=== PATIENT | female | born 1995 | race African-American/Black ===

== ENCOUNTER 2017-01-17 20:30 | Emergency (ER) | payer SELFPAY ==
[~2017-01-17] VITALS: Ht 162.6 cm; Wt 134.3 kg
[~2017-01-17 20:30] MED LIST: ACET-789 PO; AMOX500C2 PO; CEPH500C PO; HYDR-757 PO; IBP800T PO; METH4TAB PO; ONDN4T PO; SILV25CR TP; SULF1TAB35 PO; ZLP5T PO
[2017-01-17] MEDS ORDERED: AMOXICILLIN 500 MG (POLYMOX) CAP PO STA (20:58)
[2017-01-17] MEDS ORDERED: TETANUS,DIPTH,PERTUSS P/F (BOOSTRIX) 0.5 ML VIAL IM ONE (21:00)
[2017-01-17] MEDS ORDERED: DEXAMETHASONE PF 10 MG/ML (DECADRON) VIAL IM ONE (21:00)
[2017-01-17] MEDS ORDERED: AMOX500C2 PO (21:03)
--- NOTE | 2017-01-17 21:04 | ED EENT ---
History of Present Illness General Chief Complaint: Oral/Throat Problems Stated Complaint: SORE THROAT Nursing Triage Note: Pt. advises that she has had a sore throat x 3 days and is now starting to loose her voice. She advised she also has a cut to her lower right leg secondary to a screen door around 1500. She is unsure of the last time she had a tetanus shot Source: patient Exam Limitations: no limitations History of Present Illness Time seen by provider: 20:59 Initial Comments To ER with tenderness around the left lower molar for the past 2-3 days. This has since radiated down into some of the lymph nodes in her neck which are nontender. No fevers. She reports a nonproductive cough however with associated general body aches, sore throat and rhinorrhea. She also cut the back of her foot today on a screen door at home and is uncertain of her tetanus vaccination status. Timing/Duration: gradual Severity: moderate Location: throat Prearrival Treatment: no prearrival treatment Associated Symptoms: cough, No fever, sore throat, voice change (hoarseness but able to swallow without difficulty. No sensation of swelling in her neck.) Allergies and Home Medications Allergies Coded Allergies: acetaminophen (Verified Allergy, Mild, HIVES, 10/11/15) tramadol (Unverified Allergy, Unknown, 01/05/15) Home Medications No Active Prescriptions or Reported Meds Review of Systems Constitutional: see HPI, No chills Eyes: No Symptoms Reported Ears: No Symptoms Reported Nose: no symptoms reported Mouth: see HPI, pain Throat: see HPI, pain, denies neck stiffness, hoarse, denies aphonia, denies muffled, denies painful swallowing, denies difficulty with fluids, denies previous injury Respiratory: no symptoms reported Cardiovascular: no symptoms reported Musculoskeletal: no symptoms reported Skin: no symptoms reported Neurological: No Symptoms Reported Hematologic/Lymphatic: No Symptoms Reported Immunological/Allergic: no symptoms reported Past Sjfvpaa-Seomvy-Pqaskz Hx Patient Social History Alcohol Use: Denies Use Recreational Drug Use: No Smoking Status: Current Everyday Smoker Type Used: Cigarettes Recent Foreign Travel: No Contact w/Someone Who Travel: No Recent Infectious Disease Expo: No Recent Hopitalizations: No Immunizations Up To Date Tetanus Booster (TDap): Unknown Seasonal Allergies Seasonal Allergies: No Surgeries HX Surgeries: No Respiratory Hx Respiratory Disorders: No Cardiovascular Hx Cardiac Disorders: Yes (HIGH BP EVER SINCE I WAS YOUNG) Cardiac Disorders: Hypertension Neurological Hx Neurological Disorders: Yes (HAND TREMORS ALOT.) Reproductive System Hx Reproductive Disorders: No Sexually Transmitted Disease: Yes (TRICHAMONIS) Female Reproductive Disorders: Denies Genitourinary Hx Genitourinary Disorders: No Gastrointestinal Hx Gastrointestinal Disorders: Yes Gastrointestinal Disorders: Gastroesophageal Reflux Musculoskeletal Hx Musculoskeletal Disorders: No Endocrine Hx Endocrine Disorders: No HEENT HX ENT Disorders: No Cancer Hx Cancer: No Psychosocial Hx Psychiatric Problems: Yes Behavioral Health Disorders: Anxiety Integumentary HX Skin/Integumentary Disorder: No Blood Transfusions Hx Blood Disorders: No Family Medical History Family Medial History: Diabetes mellitus 19 MOTHER Hypertension 19 FATHER 19 MOTHER Thyroid disease 19 MOTHER Physical Exam Vital Signs Vital Sign - Last 12Hours 01/17/17 20:46 Temp 97.9 Pulse 81 Resp 14 B/P (MAP) 142/85 Pulse Ox 99 O2 Delivery Room Air General Appearance: WD/WN, no apparent distress Eyes: bilateral eye EOMI, bilateral eye PERRL, bilateral eye normal inspection Ears: bilateral ear TM normal, bilateral ear auricle normal, bilateral ear canal normal Nose: normal inspection, No discharge Neck: non-tender, full range of motion, No lymphadenopathy (R), lymphadenopathy (L) Cardiovascular: no murmur Respiratory: no respiratory distress, no accessory muscle use Gastrointestinal: normal bowel sounds, non tender, soft Neurologic/Psychiatric: alert, normal mood/affect, oriented x 3 Skin: normal color, warm/dry There is a small superficial laceration to the back of the right ankle without active bleeding that she has card with a Band-Aid and this is all that it needs. Progress/Results/Core Measures Results/Orders Vital Signs/I&O Vital Sign - Last 12Hours 01/17/17 20:46 Temp 97.9 Pulse 81 Resp 14 B/P (MAP) 142/85 Pulse Ox 99 O2 Delivery Room Air Blood Pressure Mean: 104 Departure Communication Progress Notes There is no palpable induration or swelling of any part of the jaw or neck. There is no peritonsillar abscess or uvular deviation. No evidence of a deep space neck infection Impression Impression: Primary Impression: Pain, dental Additional Impression: Viral syndrome Disposition: 01 HOME, SELF-CARE Departure-Patient Inst. Decision time for Depature: 21:03 Referrals: MINOR ANNA (PCP/Family) Primary Care Physician Patient Instructions: NO INSTRUCTIONS GIVEN Add. Discharge Instructions: 1. Antibiotics as directed 2. Return to ER for any concerns or worsening symptoms 3. Follow-up with her doctor next week All discharge instructions reviewed with patient and/or family. Voiced understanding. Scripts Amoxicillin (Amoxicillin) 500 Mg Capsule 500 MG PO TID, #21 CAP Prov: GEORGE ANDRADE APRN 01/17/17 Work/School Note: Work Release Form Date Seen in the Emergency Department: January 17, 2017 GEORGE ANDRADE APRN January 17, 2017 21:04
[2017-01-17 21:20] VITALS: BP 145/70
== END 2017-01-17 21:22 | disposition home or self-care (01) ==
LOC: EDUNIT# 20:30 → ER 20:33
DX: B34.9 Viral infection, unspecified (principal); K08.9 Disorder of teeth and supporting structures, unspecified; S81.811A Laceration without foreign body, right lower leg, initial encounter; Z23 Encounter for immunization; F17.210 Nicotine dependence, cigarettes, uncomplicated; W22.8XXA Striking against or struck by other objects, initial encounter; Y92.009 Unspecified place in unspecified non-institutional (private) residence as the place of occurrence of the external cause; Y99.8 Other external cause status
CPT/HCPCS: 90715; 99282

== ENCOUNTER 2017-04-07 20:30 | Emergency (ER) | payer SELFPAY ==
[~2017-04-07] VITALS: Ht 160 cm; Wt 90.7 kg
[2017-04-07] MEDS ORDERED: IBUPROFEN 800 MG (MOTRIN) TAB PO STA (21:11)
[2017-04-07] MEDS ORDERED: RX-CEPHALEXIN (KEFLEX) 250 MG CAP PPK#4 PO STA (21:11)
--- NOTE | 2017-04-07 21:21 | ED EENT ---
History of Present Illness General Chief Complaint: Dental Problems/Pain Stated Complaint: L SIDE MOUTH PAIN Nursing Triage Note: COMPLAINT OF DENTAL PAIN STARTED 3 DAYS AGO. PT VERBALIZED WORSENED TODAY, SWELLING OF GUMS LEFT SIDE WITH PAIN. Source: patient Exam Limitations: no limitations History of Present Illness Time seen by provider: 21:07 Initial Comments 22-year-old female patient presents to the emergency department complaining to 3 day onset of dental pain. States pain is worse today. States she was bringing her mother to the emergency department to be evaluated, so she decided "why not seen as well." Timing/Duration: gradual Location: dental Prearrival Treatment: no prearrival treatment Modifying Factors: Worse With Other (chewing) Allergies and Home Medications Allergies Coded Allergies: acetaminophen (Verified Allergy, Mild, HIVES, 10/11/15) tramadol (Unverified Allergy, Unknown, 01/05/15) Home Medications Amoxicillin 500 Mg Capsule, 500 MG PO TID, #21 Prescribed by: GEORGE ANDRADE on 01/17/172102 Review of Systems Constitutional: No chills, No fever, No malaise Eyes: No Symptoms Reported Ears: No Symptoms Reported Nose: no symptoms reported Mouth: see HPI, pain, swelling (swelling of the gums) Throat: denies pain, denies swelling, denies neck stiffness, denies aphonia, denies muffled, denies painful swallowing, denies difficulty with fluids Respiratory: no symptoms reported Cardiovascular: no symptoms reported Gastrointestinal: no symptoms reported Skin: no symptoms reported Neurological: No Symptoms Reported All Other Systems Reviewed Negative Unless Noted: Yes (Negative excepted noted.) Past Wrbocvl-Wqgqah-Itgvry Hx Patient Social History Type Used: Cigarettes Recent Foreign Travel: No Contact w/Someone Who Travel: No Recent Infectious Disease Expo: No Recent Hopitalizations: No Immunizations Up To Date Tetanus Booster (TDap): Unknown Seasonal Allergies Seasonal Allergies: No Surgeries HX Surgeries: No Respiratory Hx Respiratory Disorders: No Cardiovascular Hx Cardiac Disorders: Yes (HIGH BP EVER SINCE I WAS YOUNG) Cardiac Disorders: Hypertension Neurological Hx Neurological Disorders: Yes (HAND TREMORS ALOT.) Reproductive System Hx Reproductive Disorders: No Sexually Transmitted Disease: Yes (TRICHAMONIS) Female Reproductive Disorders: Denies Genitourinary Hx Genitourinary Disorders: No Gastrointestinal Hx Gastrointestinal Disorders: Yes Gastrointestinal Disorders: Gastroesophageal Reflux Musculoskeletal Hx Musculoskeletal Disorders: No Endocrine Hx Endocrine Disorders: No HEENT HX ENT Disorders: No Cancer Hx Cancer: No Psychosocial Hx Psychiatric Problems: Yes Behavioral Health Disorders: Anxiety Integumentary HX Skin/Integumentary Disorder: No Blood Transfusions Hx Blood Disorders: No Reviewed Nursing Assessment Reviewed/Agree w Nursing PMH: Yes Family Medical History Significant Family History: No Pertinent Family Hx Family Medial History: Diabetes mellitus 19 MOTHER Hypertension 19 FATHER 19 MOTHER Thyroid disease 19 MOTHER Physical Exam Vital Signs Vital Sign - Last 12Hours 04/07/17 20:53 Temp 98.0 Pulse 72 Resp 20 B/P (MAP) 105/70 Pulse Ox 97 O2 Delivery Room Air General Appearance: WD/WN, no apparent distress Eyes: bilateral eye EOMI, bilateral eye PERRL, bilateral eye normal inspection Ears: bilateral ear TM normal, bilateral ear auricle normal, bilateral ear canal normal Nose: normal inspection Mouth/Throat: pharynx normal, dental tenderness (left lower dental tenderness with very minimal swelling of the gums), No excessive drooling, No mandibular swelling, No maxillary swelling, No tongue swollen, No trismus, No uvula swelling, No voice changes Neck: non-tender, full range of motion, supple, normal inspection Cardiovascular: regular rate, rhythm, no murmur Respiratory: lungs clear, normal breath sounds, no respiratory distress Neurologic/Psychiatric: alert, normal mood/affect, oriented x 3 Skin: normal color, warm/dry Progress/Results/Core Measures Results/Orders My Orders Orders - FABRIZIO RENEE Ibuprofen Tablet (Motrin Tablet) (04/07/17 21:11) Rx-Cephalexin Capsule (Rx-Keflex Capsule (04/07/17 21:11) Vital Signs/I&O Vital Sign - Last 12Hours 04/07/17 20:53 Temp 98.0 Pulse 72 Resp 20 B/P (MAP) 105/70 Pulse Ox 97 O2 Delivery Room Air Blood Pressure Mean: 82 Departure Impression Impression: Primary Impression: Infected dental caries Disposition: 01 HOME, SELF-CARE Condition: Improved Departure-Patient Inst. Decision time for Depature: 21:21 Referrals: MINOR ANNA (PCP/Family) Primary Care Physician Patient Instructions: Dental Pain (DC) Add. Discharge Instructions: All discharge instructions reviewed with patient and/or family. Voiced understanding. Medications as instructed. Ibuprofen 800 mg by mouth every 8 hours as needed for pain. Follow-up with the dentist of your choice for recheck and dental repair. Return to the emergency department for worsened symptoms or any other concerns. Scripts Hydrocodone/Acetaminophen (Vicodin Es 7.5-300 mg Tablet) 1 Each Tablet 1 EACH PO Q6H Y for pain, #10 TAB 0 Refills Prov: FABRIZIO RENEE 04/07/17 Cephalexin (Cephalexin) 500 Mg Capsule 500 MG PO TID, #21 CAP 0 Refills Prov: FABRIZIO RENEE 04/07/17 FABRIZIO RENEE Apr 07, 2017 21:21
[2017-04-07] MEDS ORDERED: HYDR-3456 PO (21:24)
[2017-04-07] MEDS ORDERED: CEPH500C PO (21:24)
[2017-04-07 21:35] VITALS: BP 115/70
== END 2017-04-07 21:35 | disposition home or self-care (01) ==
LOC: EDUNIT# 20:30 → ER 20:33
DX: K02.9 Dental caries, unspecified (principal); I10 Essential (primary) hypertension; K21.9 Gastro-esophageal reflux disease without esophagitis; F41.9 Anxiety disorder, unspecified
CPT/HCPCS: 99283

== ENCOUNTER 2017-08-30 19:05 | Emergency (ER) | payer SELFPAY ==
[~2017-08-30] VITALS: Ht 162.6 cm; Wt 131.5 kg
[~2017-08-30 19:05] MED LIST changes: +HYDR-3456 PO
[2017-08-30] MEDS ORDERED: AMOX500C2 PO (19:51)
--- NOTE | 2017-08-30 19:52 | ED EENT ---
History of Present Illness General Chief Complaint: Dental Problems/Pain Stated Complaint: DENTAL PAIN Nursing Triage Note: PT TO ED FOR C/O LT SIDE DENTAL PAIN ONSET 2-3 DAYS, WORSE TODAY. POOR DENTAL HYGIENE NOTED. NO OTHER C/O VOICED Source: patient Exam Limitations: no limitations History of Present Illness Time seen by provider: 19:46 Initial Comments To ER with c/o left tooth pain x3 days. Timing/Duration: abrupt Severity: moderate Associated Symptoms: cough Allergies and Home Medications Allergies Coded Allergies: acetaminophen (Verified Allergy, Mild, HIVES, 10/11/15) tramadol (Unverified Allergy, Unknown, 01/05/15) Home Medications Amoxicillin 500 Mg Capsule, 500 MG PO TID, #21 Prescribed by: GEORGE ANDRADE on 01/17/172102 Cephalexin 500 Mg Capsule, 500 MG PO TID, #21 Ref 0 Prescribed by: FABRIZIO RENEE on 04/07/172123 Hydrocodone/Acetaminophen 1 Each Tablet, 1 EACH PO Q6H PRN for pain, #10 Ref 0 Prescribed by: FABRIZIO RENEE on 04/07/172123 Review of Systems Constitutional: see HPI Eyes: No Symptoms Reported Ears: No Symptoms Reported Nose: no symptoms reported Mouth: see HPI Throat: no symptoms reported Respiratory: no symptoms reported Cardiovascular: no symptoms reported Musculoskeletal: no symptoms reported Past Lwckvve-Diyalk-Qggyaq Hx Patient Social History Alcohol Use: Occasionally Uses Recreational Drug Use: No Smoking Status: Current Everyday Smoker Type Used: Cigarettes Recent Foreign Travel: No Contact w/Someone Who Travel: No Recent Infectious Disease Expo: No Recent Hopitalizations: No Physical Abuse: No Sexual Abuse: No Mistreated: No Fear: No Immunizations Up To Date Tetanus Booster (TDap): Unknown Seasonal Allergies Seasonal Allergies: No Surgeries History of Surgeries: No Respiratory History of Respiratory Disorde: No Cardiovascular History of Cardiac Disorders: Yes (HIGH BP EVER SINCE I WAS YOUNG) Cardiac Disorders: Hypertension Neurological History of Neurological Disord: Yes (HAND TREMORS ALOT.) Reproductive System Hx Reproductive Disorders: No Sexually Transmitted Disease: Yes (TRICHAMONIS) Female Reproductive Disorders: Denies Gastrointestinal History of Gastrointestinal Di: Yes Gastrointestinal Disorders: Gastroesophageal Reflux Musculoskeletal History of Musculoskeletal Dis: No Endocrine History of Endocrine Disorders: No Cancer History of Cancer: No Psychosocial History of Psychiatric Problem: Yes Behavioral Health Disorders: Anxiety Suicide Risk Score: 0 Integumentary History of Skin or Integumenta: No Blood Transfusions History of Blood Disorders: No Family Medical History Significant Family History: No Pertinent Family Hx Family Medial History: Diabetes mellitus 19 MOTHER Hypertension 19 FATHER 19 MOTHER Thyroid disease 19 MOTHER Physical Exam Vital Signs Vital Sign - Last 12Hours 08/30/17 19:22 Temp 97.1 Pulse 68 Resp 20 B/P (MAP) 137/79 (98) Pulse Ox 100 O2 Delivery Room Air General Appearance: WD/WN, no apparent distress Eyes: bilateral eye normal inspection, bilateral eye PERRL Ears: bilateral ear auricle normal, bilateral ear canal normal Mouth/Throat: normal mouth inspection, pharynx normal, other (is inflamed flap of gingiva over the left lower molar. Tender to palpation.) Neck: non-tender, full range of motion, No lymphadenopathy (R), lymphadenopathy (L) Cardiovascular: regular rate, rhythm, no murmur Respiratory: normal breath sounds, no respiratory distress, no accessory muscle use Gastrointestinal: normal bowel sounds, non tender Neurologic/Psychiatric: alert, normal mood/affect, oriented x 3 Skin: normal color, warm/dry Progress/Results/Core Measures Results/Orders Vital Signs/I&O Vital Sign - Last 12Hours 08/30/17 19:22 Temp 97.1 Pulse 68 Resp 20 B/P (MAP) 137/79 (98) Pulse Ox 100 O2 Delivery Room Air Blood Pressure Mean: 98 Departure Impression Impression: Primary Impression: Pericoronitis Disposition: 01 HOME, SELF-CARE Condition: Stable Departure-Patient Inst. Decision time for Depature: 19:49 Referrals: NO,LOCAL PHYSICIAN (PCP/Family) Primary Care Physician Patient Instructions: NO INSTRUCTIONS GIVEN Add. Discharge Instructions: 1. Use the cotton ball soaked in lidocaine applied to this area every few hours as needed 2. Antibiotics as directed 3. Return to ER for any worsening. 4. Use both tylenol and motrin as well for additional pain control All discharge instructions reviewed with patient and/or family. Voiced understanding. Scripts Amoxicillin (Amoxicillin) 500 Mg Capsule 500 MG PO TID, #15 CAP Prov: GEORGE ANDRADE APRN 08/30/17 GEORGE ANDRADE COMPENSATION VICE PRESIDENT Aug 30, 2017 19:52
[2017-08-30] MEDS ORDERED: AMOXICILLIN 500 MG (POLYMOX) CAP PO ONE (19:54)
[2017-08-30] MEDS ORDERED: AMOXICILLIN 250 MG (POLYMOX) CAP PO SCH (20:00)
[2017-08-30] MEDS ORDERED: LIDOCAINE 2% VISCOUS 15 ML UDC PO ONE (20:00)
[2017-08-30 20:03] VITALS: BP 0/0
== END 2017-08-30 20:03 | disposition home or self-care (01) ==
LOC: EDUNIT# 19:05 → ER 19:07
DX: K05.30 Chronic periodontitis, unspecified (principal); I10 Essential (primary) hypertension; K21.9 Gastro-esophageal reflux disease without esophagitis; F41.9 Anxiety disorder, unspecified; F17.210 Nicotine dependence, cigarettes, uncomplicated
CPT/HCPCS: 99283

== ENCOUNTER 2018-03-07 19:23 | Emergency (ER) | payer SELFPAY ==
[~2018-03-07] VITALS: Ht 160 cm; Wt 113.4 kg
[2018-03-07] MEDS ORDERED: HYDR10SY16 PO (19:39)
[2018-03-07] MEDS ORDERED: BUPR150T7 (19:39)
[2018-03-07] MEDS ORDERED: LIDOCAINE 2% VISCOUS 15 ML UDC PO ONE (20:00)
--- NOTE | 2018-03-07 20:04 | ED EENT ---
History of Present Illness General Chief Complaint: Dental Problems/Pain Stated Complaint: GUMS SWELLING/BLEEDING Nursing Triage Note: SWOLLEN/PAINFUL GUMS Source: patient Exam Limitations: no limitations History of Present Illness Date Seen by Provider: Mar 07, 2018 Time Seen by Provider: 20:00 Initial Comments Patient is a 22-year-old female presents to the emergency room with complaints of a sore in her mouth. The patient has a sore that she reports has been bleeding in the left upper inner lip. She reports that she has been seen by the dentist recently and thought it was just irritation from a dental cleaning but reports that the pain has become worse and she did notice bleeding this morning. Timing/Duration: this morning Prearrival Treatment: no prearrival treatment Associated Symptoms: denies symptoms; No fever, No tooth pain Allergies and Home Medications Allergies Coded Allergies: acetaminophen (Verified Allergy, Mild, HIVES, 10/11/15) tramadol (Unverified Allergy, Unknown, 01/05/15) Home Medications Amoxicillin 500 Mg Capsule, 500 MG PO TID Prescribed by: GEORGE ANDRADE on 03/08/182024 Chlorhexidine Gluconate 473 Ml Mouthwash, 45 ML MM BID Prescribed by: GEORGE ANDRADE on 03/08/182024 Patient Home Medication List Home Medication List Reviewed: Yes Review of Systems Constitutional: see HPI; No chills, No fever, No malaise Eyes: See HPI; Denies Blindness, Denies Blurred Vision, Denies Drainage Ears: See HPI; Denies Dizziness, Denies Pain Nose: see HPI; denies clots, denies congestion Mouth: see HPI; denies loose teeth; pain; denies swelling; bloody discharge; denies clear discharge, denies purulent discharge Throat: see HPI; denies pain, denies swelling, denies discharge Respiratory: see HPI; No cough, No dyspnea on exertion Cardiovascular: see HPI; No chest pain, No edema Gastrointestinal: see HPI Musculoskeletal: see HPI; No back pain, No gout Skin: see HPI; No change in color, No change in hair/nails Neurological: See HPI; Denies Anxiety, Denies Depressed Hematologic/Lymphatic: See HPI; Denies Anemia, Denies Blood Clots Immunological/Allergic: see HPI; denies food allergy All Other Systems Reviewed Negative Unless Noted: Yes Past Ikdnxxa-Smgzxw-Hwqwtl Hx Past Med/Social Hx: Reviewed Nursing Past Med/Soc Hx Patient Social History Alcohol Use: Denies Use Recreational Drug Use: No Type Used: Cigarettes 2nd Hand Smoke Exposure: Yes Recent Foreign Travel: No Contact w/Someone Who Travel: No Recent Infectious Disease Expo: No Recent Hopitalizations: No Immunizations Up To Date Tetanus Booster (TDap): Unknown Seasonal Allergies Seasonal Allergies: No Past Medical History Surgeries: No Respiratory: No Cardiac: Yes Hypertension Neurological: No : No Reproductive Disorders: No Female Reproductive Disorders: Denies Sexually Transmitted Disease: Yes (TRICHAMONIS) Genitourinary: Yes UTI-Chronic Gastrointestinal: Yes Gastroesophageal Reflux Musculoskeletal: No Endocrine: No HEENT: No Cancer: No Psychosocial: Yes Anxiety, Violent Behavior, Depression Integumentary: No Blood Disorders: No Family Medical History Reviewed Nursing Family Hx Diabetes mellitus 19 MOTHER Hypertension 19 FATHER 19 MOTHER Thyroid disease 19 MOTHER No Pertinent Family Hx Physical Exam Vital Signs General Appearance: WD/WN, no apparent distress Eyes: bilateral eye normal inspection, bilateral eye PERRL, bilateral eye EOMI Ears: bilateral ear auricle normal, bilateral ear canal normal, bilateral ear TM normal Nose: normal inspection; No active bleeding Mouth/Throat: normal mouth inspection, pharynx normal; No dental tenderness, No excessive drooling, No foreign body, No mandibular swelling; other (there is a canker lesion in the left upper lip. Is white in color. no bleeding noted at this time) Neck: non-tender, full range of motion, supple, normal inspection Cardiovascular: normal peripheral pulses, regular rate, rhythm, no edema, no gallop, no JVD, no murmur Respiratory: chest non-tender, lungs clear, normal breath sounds, no respiratory distress, no accessory muscle use Gastrointestinal: normal bowel sounds, non tender, soft, no organomegaly, no pulsatile mass Neurologic/Psychiatric: alert, normal mood/affect, oriented x 3 Skin: normal color, warm/dry Progress/Results/Core Measures Results/Orders My Orders Medications Given in ED Vital Signs/I&O Blood Pressure Mean: 109 Progress Progress Note : Time: 20:03 Progress Note Patient was sent home with prescription for dexamethasone elixir to be used as needed. Departure Impression Primary Impression: Canker sore Disposition: 01 HOME, SELF-CARE Condition: Stable/Unchanged Departure-Patient Inst. Decision time for Depature: 20:01 Referrals: NO,LOCAL PHYSICIAN (PCP) Primary Care Physician Patient Instructions: LOCAL PHYSICIAN LIST, Gingivitis (DC) Add. Discharge Instructions: Take medications as directed. Se may use the lidocaine soaked gauze on the area for discomfort. Return back to the emergency room for any worsening symptoms. Follow-up with your doctor within 1 week for recheck, I provided a list of local physicians for your choosing. All discharge instructions reviewed with patient and/or family. Voiced understanding. WILMER CONTRERAS Mar 07, 2018 20:04
[2018-03-07 20:09] VITALS: BP 147/90
[2018-03-08] MEDS ORDERED: AMOX500C2 PO (20:25)
[2018-03-08] MEDS ORDERED: CHLO473M4 MM (20:25)
== END 2018-03-07 20:09 | disposition home or self-care (01) ==
LOC: EDUNIT# 19:23 → ER 19:25
DX: K12.0 Recurrent oral aphthae (principal); I10 Essential (primary) hypertension; K21.9 Gastro-esophageal reflux disease without esophagitis; F41.9 Anxiety disorder, unspecified; F32.9 Major depressive disorder, single episode, unspecified; Z77.22 Contact with and (suspected) exposure to environmental tobacco smoke (acute) (chronic); Z88.6 Allergy status to analgesic agent
CPT/HCPCS: 99283

== ENCOUNTER 2018-03-08 20:08 | Emergency (ER) | payer SELFPAY ==
[~2018-03-08] VITALS: Ht 160 cm; Wt 113.4 kg
[~2018-03-08 20:08] MED LIST changes: +BUPR150T7; +HYDR10SY16 PO
[2018-03-08] MEDS ORDERED: AMOXICILLIN 500 MG (POLYMOX) CAP PO STA (20:17)
--- NOTE | 2018-03-08 20:24 | ED EENT ---
History of Present Illness General Chief Complaint: Oral/Throat Problems Stated Complaint: CANKER SORE/EXCESSIVE BLEEDING Source: patient Exam Limitations: no limitations History of Present Illness Date Seen by Provider: Mar 08, 2018 Time Seen by Provider: 20:18 Initial Comments to ER with reports of bleeding from a canker sore. She was seen here yesterday for the same and given topical lidocaine for pain control and a prescription for dexamethasone mouthwash. She states that she was at work this evening at [employer] when she developed bleeding and pain to the left upper gums Timing/Duration: last week (discomfort to the left upper gums has been present for one week) Severity: moderate Location: mouth Associated Symptoms: denies symptoms Allergies and Home Medications Allergies Coded Allergies: acetaminophen (Verified Allergy, Mild, HIVES, 10/11/15) tramadol (Unverified Allergy, Unknown, 01/05/15) Patient Home Medication List Home Medication List Reviewed: Yes Review of Systems Constitutional: see HPI Eyes: No Symptoms Reported Ears: No Symptoms Reported Nose: see HPI, epistaxis, bloody discharge Mouth: no symptoms reported Throat: no symptoms reported Respiratory: no symptoms reported Cardiovascular: no symptoms reported Musculoskeletal: no symptoms reported Skin: no symptoms reported Neurological: No Symptoms Reported Hematologic/Lymphatic: No Symptoms Reported Immunological/Allergic: no symptoms reported Past Lniwtlo-Prbfvq-Hvyjky Hx Patient Social History Type Used: Cigarettes 2nd Hand Smoke Exposure: Yes Recent Hopitalizations: No Immunizations Up To Date Tetanus Booster (TDap): Unknown Seasonal Allergies Seasonal Allergies: No Past Medical History Surgeries: No Respiratory: No Cardiac: Yes Hypertension Neurological: No Reproductive Disorders: No Female Reproductive Disorders: Denies Sexually Transmitted Disease: Yes (TRICHAMONIS) Genitourinary: Yes UTI-Chronic Gastrointestinal: Yes Gastroesophageal Reflux Musculoskeletal: No Endocrine: No HEENT: No Cancer: No Psychosocial: Yes Anxiety, Violent Behavior, Depression Integumentary: No Blood Disorders: No Family Medical History Diabetes mellitus 19 MOTHER Hypertension 19 FATHER 19 MOTHER Thyroid disease 19 MOTHER No Pertinent Family Hx Physical Exam General Appearance: WD/WN, no apparent distress Eyes: bilateral eye normal inspection, bilateral eye PERRL, bilateral eye EOMI Nose: normal inspection; No active bleeding Mouth/Throat: other (there is some inflammation of the left maxillary gingiva with friability as well. There is no active source of bleeding. There is some minimal blood around a few teeth at the base. There is no aphthous ulcer seen. No buccal discoloration ulceration or other lesions seen.) Progress/Results/Core Measures Results/Orders My Orders Orders - GEORGE ANDRADE APRN Amoxicillin Capsule (Polymox Capsule) (03/08/18 20:17) Departure Impression Primary Impression: Gingivitis Disposition: HOME, SELF-CARE Condition: Stable Departure-Patient Inst. Decision time for Depature: 20:24 Referrals: NO,LOCAL PHYSICIAN (PCP/Family) Primary Care Physician Patient Instructions: Gingivitis (DC) Add. Discharge Instructions: 1. You may stop the dexamethasone mouthwash. Replace this with the chlorhexidine mouthwash and oral antibiotics. Follow-up with your dentist within 1 week.All discharge instructions reviewed with patient and/or family. Voiced understanding. Scripts Amoxicillin (Amoxicillin) 500 Mg Capsule 500 MG PO TID, #21 CAP Prov: GEORGE ANDRADE APRN 03/08/18 Chlorhexidine Gluconate (Peridex) 473 Ml Mouthwash 45 ML MM BID, #473 ML Prov: GEORGE ANDRADE APRN 03/08/18 GEORGE ANDRADE APRN Mar 08, 2018 20:24
[2018-03-08] MEDS ORDERED: AMOX500C2 PO (20:25)
[2018-03-08] MEDS ORDERED: CHLO473M4 MM (20:25)
[2018-03-08 20:30] VITALS: BP 164/100
== END 2018-03-08 20:35 | disposition home or self-care (01) ==
LOC: EDUNIT# 20:08 → ER 20:09
DX: K05.10 Chronic gingivitis, plaque induced (principal); K21.9 Gastro-esophageal reflux disease without esophagitis; F41.9 Anxiety disorder, unspecified; F32.9 Major depressive disorder, single episode, unspecified; F60.9 Personality disorder, unspecified; I10 Essential (primary) hypertension; Z77.22 Contact with and (suspected) exposure to environmental tobacco smoke (acute) (chronic); Z88.6 Allergy status to analgesic agent
CPT/HCPCS: 99283

== ENCOUNTER 2018-06-21 09:41 | Emergency (ER) | payer SELFPAY ==
[~2018-06-21] VITALS: Ht 162.6 cm; Wt 113.4 kg
[~2018-06-21 09:41] MED LIST changes: +CHLO473M4 MM; +HYDR-4226 PO
[2018-06-21 10:20] LABS: BASOPHILS % (AUTO) 0 % (0-10); EOSINOPHILS # (AUTO) 0.1 10^3/uL (0.0-0.3); EOSINOPHILS % (AUTO) 1 % (0-10); HEMATOCRIT 37 % (35-52); LYMPHOCYTES # (AUTO) 1.8 X 10^3 (1.0-4.0); LYMPHOCYTES % (AUTO) 27 % (12-44); MEAN CORPUSCULAR HEMOGLOBIN 26 PG (25-34); MEAN CORPUSCULAR HGB CONC 33 G/DL (32-36); MEAN CORPUSCULAR VOLUME 80 FL (80-99); MONOCYTES # (AUTO) 0.6 X 10^3 (0.0-1.0); MONOCYTES % (AUTO) 9 % (0-12); NEUTROPHILS # (AUTO) 4.3 X 10^3 (1.8-7.8); NEUTROPHILS % (AUTO) 63 % (42-75); PLATELET COUNT 304 10^3/uL (130-400); RED BLOOD COUNT 4.57 10^6/uL (4.35-5.85); RED CELL DISTRIBUTION WIDTH 15.2 % (10.0-14.5); WHITE BLOOD COUNT 6.7 10^3/uL (4.3-11.0)
[2018-06-21 10:42] LABS: ALANINE AMINOTRANSFERASE 19 U/L (0-55); ALKALINE PHOSPHATASE 51 U/L (40-136); BILIRUBIN,TOTAL 0.4 MG/DL (0.1-1.0); BUN/CREATININE RATIO 13; CALCIUM 9.1 MG/DL (8.5-10.1); CARBON DIOXIDE 20 MMOL/L (21-32); CHLORIDE 108 MMOL/L (98-107); CREATININE SERUM 0.82 MG/DL (0.60-1.30); GFR ESTIMATED > 60; GLUCOSE 98 MG/DL (70-105); POTASSIUM 3.9 MMOL/L (3.6-5.0); SODIUM 136 MMOL/L (135-145); TOTAL PROTEIN 8.5 GM/DL (6.4-8.2)
[2018-06-21] MEDS ORDERED: ONDANSETRON 8 MG (ZOFRAN) ORAL DISSOLVE TAB PO ONE (10:45)
--- NOTE | 2018-06-21 11:07 | ED Cough/URI ---
General Chief Complaint: Cough/Cold/Flu Symptoms Stated Complaint: COUGH;WEAKNESS Nursing Triage Note: Patient stated cough since yesterday. Has not taken any medication for it. Keeps patient up at night and cough is uncontrollable, threw up 5 times. general weakness History of Present Illness Date Seen by Provider: Jun 21, 2018 Time Seen by Provider: 11:04 Initial Comments The patient is a 23-year-old black female who reports that she developed a cough yesterday. At times it has been rather violent. SHe has on occasion caused her to vomit. She complains bitterly of fever and loss of sleep. Others at home have been ill as well. Timing/Duration: yesterday Severity/Quality: productive cough (harsh cough with vomiting) Allergies and Home Medications Allergies Coded Allergies: acetaminophen (Verified Allergy, Mild, HIVES, 10/11/15) tramadol (Unverified Allergy, Unknown, 01/05/15) Home Medications Amoxicillin 500 Mg Capsule, 500 MG PO TID Prescribed by: GEORGE ANDRADE on 03/08/182024 Chlorhexidine Gluconate 473 Ml Mouthwash, 45 ML MM BID Prescribed by: GEORGE ANDRADE on 03/08/182024 Patient Home Medication List Home Medication List Reviewed: Yes Review of Systems Review of Systems Constitutional: see HPI EENTM: hoarseness, throat pain Respiratory: cough Cardiovascular: no symptoms reported Gastrointestinal: no symptoms reported Genitourinary: no symptoms reported Musculoskeletal: muscle pain Skin: no symptoms reported Psychiatric/Neurological: No Symptoms Reported Hematologic/Lymphatic: No Symptoms Reported Immunological/Allergic: no symptoms reported Past Jbcwdax-Myvoiy-Gwxvzp Hx Patient Social History Alcohol Use: Denies Use Recreational Drug Use: No Smoking Status: Current Everyday Smoker Type Used: Cigarettes 2nd Hand Smoke Exposure: Yes Recent Foreign Travel: No Contact w/Someone Who Travel: No Recent Infectious Disease Expo: No Recent Hopitalizations: No Immunizations Up To Date Tetanus Booster (TDap): Unknown Seasonal Allergies Seasonal Allergies: No Past Medical History Surgeries: No Respiratory: No Cardiac: No Hypertension Neurological: No Reproductive Disorders: No Female Reproductive Disorders: Denies Sexually Transmitted Disease: Yes (TRICHAMONIS) Genitourinary: No UTI-Chronic Gastrointestinal: No Gastroesophageal Reflux Musculoskeletal: No Endocrine: No HEENT: No Cancer: No Psychosocial: No Anxiety, Violent Behavior, Depression Integumentary: No Blood Disorders: No Adverse Reaction/Blood Tranf: No Family Medical History Diabetes mellitus 19 MOTHER Hypertension 19 FATHER 19 MOTHER Thyroid disease 19 MOTHER No Pertinent Family Hx Physical Exam Vital Signs - First Documented 06/21/18 09:52 Temp 99.0 Pulse 83 Resp 22 B/P (MAP) 133/109 (117) Pulse Ox 97 O2 Delivery Room Air Capillary Refill : Less Than 3 Seconds Height: 5'4.00" Weight: 250lbs. 0oz. 113.302013jo; 48.06 BMI Method:Stated General Appearance: mild distress Eyes: Bilateral Eye Normal Inspection HEENT: normal ENT inspection Neck: non-tender, full range of motion, supple, normal inspection, carotid bruit Respiratory: chest non-tender, lungs clear, normal breath sounds, no respiratory distress, no accessory muscle use Cardiovascular: normal peripheral pulses, regular rate, rhythm, no edema, no gallop, no JVD, no murmur Gastrointestinal: normal bowel sounds, non tender, soft, no organomegaly, no pulsatile mass Extremities: normal range of motion, non-tender, normal inspection, no pedal edema, no calf tenderness, normal capillary refill, pelvis stable Neurologic/Psychiatric: cardiac nurse specialist II-XII nml as tested, no motor/sensory deficits, alert, normal mood/affect, oriented x 3 Skin: normal color, warm/dry, cyanosis, cool, diaphoresis, damp Progress/Results/Core Measures Suspected Sepsis Recent Fever Within 48 Hours: No Infection Criteria Present: Suspected New Infection New/Unexplained Altered Menta: No Sepsis Screen: No Definite Risk SIRS Temperature:99.0 Pulse: 83 Respiratory Rate: 22 Laboratory Tests 06/21/18 10:10: White Blood Count 6.7 Blood Pressure 133 /109 Mean: 117 Laboratory Tests 06/21/18 10:10: Creatinine 0.82, Platelet Count 304, Total Bilirubin 0.4 Results/Orders Lab Results Laboratory Tests Test 06/21/18 10:10 Range/Units White Blood Count 6.7 4.3-11.0 10^3/uL Red Blood Count 4.57 4.35-5.85 10^6/uL Hemoglobin 12.0 11.5-16.0 G/DL Hematocrit 37 35-52 % Mean Corpuscular Volume 80 80-99 FL Mean Corpuscular Hemoglobin 26 25-34 PG Mean Corpuscular Hemoglobin Concent 33 32-36 G/DL Red Cell Distribution Width 15.2 H 10.0-14.5 % Platelet Count 304 130-400 10^3/uL Mean Platelet Volume 9.0 7.4-10.4 FL Neutrophils (%) (Auto) 63 42-75 % Lymphocytes (%) (Auto) 27 12-44 % Monocytes (%) (Auto) 9 0-12 % Eosinophils (%) (Auto) 1 0-10 % Basophils (%) (Auto) 0 0-10 % Neutrophils # (Auto) 4.3 1.8-7.8 X 10^3 Lymphocytes # (Auto) 1.8 1.0-4.0 X 10^3 Monocytes # (Auto) 0.6 0.0-1.0 X 10^3 Eosinophils # (Auto) 0.1 0.0-0.3 10^3/uL Basophils # (Auto) 0.0 0.0-0.1 10^3/uL Sodium Level 136 135-145 MMOL/L Potassium Level 3.9 3.6-5.0 MMOL/L Chloride Level 108 H 98-107 MMOL/L Carbon Dioxide Level 20 L 21-32 MMOL/L Anion Gap 8 5-14 MMOL/L Blood Urea Nitrogen 11 7-18 MG/DL Creatinine 0.82 0.60-1.30 MG/DL Estimat Glomerular Filtration Rate > 60 BUN/Creatinine Ratio 13 Glucose Level 98 70-105 MG/DL Calcium Level 9.1 8.5-10.1 MG/DL Corrected Calcium 9.1 8.5-10.1 MG/DL Total Bilirubin 0.4 0.1-1.0 MG/DL Aspartate Amino Transf (AST/SGOT) 22 5-34 U/L Alanine Aminotransferase (ALT/SGPT) 19 0-55 U/L Alkaline Phosphatase 51 40-136 U/L Total Protein 8.5 H 6.4-8.2 GM/DL Albumin 4.0 3.2-4.5 GM/DL Micro Results Microbiology 06/21/18 Influenza Types A,B Antigen (MATA) - Final, Complete My Orders Orders - JUS TAPIA MD Cbc With Automated Diff (06/21/18 09:51) Comprehensive Metabolic Panel (06/21/18 09:51) Influenza A And B Antigens (06/21/18 09:51) Chest 1 View, Ap/Pa Only (06/21/18 11:02) Medications Given in ED Current Medications Medications Dose Ordered Sig/Domenica Route Start Time Stop Time Status Last Admin Dose Admin Ondansetron Base 8 mg ONCE ONCE PO 06/21/18 10:45 06/21/18 10:46 DC 06/21/18 10:41 8 MG Vital Signs/I&O 06/21/18 09:52 Temp 99.0 Pulse 83 Resp 22 B/P (MAP) 133/109 (117) Pulse Ox 97 O2 Delivery Room Air Capillary Refill : Less Than 3 Seconds Blood Pressure Mean: 117 Departure Impression Primary Impression: viral upper respiratory infection Disposition: HOME, SELF-CARE Condition: Stable/Unchanged Departure-Patient Inst. Decision time for Depature: 11:42 Referrals: NO,LOCAL PHYSICIAN (PCP) Primary Care Physician Patient Instructions: Cough, Adult (DC) Add. Discharge Instructions: All discharge instructions reviewed with patient and/or family. Voiced understanding. Lots of liquids. Robitussin cough syrup as needed. Holes throat lozenges, I recommend the yellow and gold package, as needed to control cough Ibuprofen 600 mg every 6 hours as needed for fever aches and pains. This can take 10 days to 2 weeks [address] your way through JUS TAPIA MD Jun 21, 2018 11:07
--- NOTE | 2018-06-21 11:20 | Diagnostic Imaging Report ---
INDICATION: Fever and chills PA chest obtained at 1109 AM and compared to 12/12/2012. Heart and mediastinal silhouette are normal in appearance. The lungs are clear. There is no pneumothorax or pleural fluid. IMPRESSION: Negative chest. Dictated by: Dictated on workstation # [id number]
[2018-06-21 12:01] VITALS: BP 133/109
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
== END 2018-06-21 12:09 | disposition home or self-care (01) ==
LOC: EDUNIT# 09:41 → ER 09:43
DX: J06.9 Acute upper respiratory infection, unspecified (principal); I10 Essential (primary) hypertension; K21.9 Gastro-esophageal reflux disease without esophagitis; F41.9 Anxiety disorder, unspecified; F32.9 Major depressive disorder, single episode, unspecified; F17.210 Nicotine dependence, cigarettes, uncomplicated; Z86.19 Personal history of other infectious and parasitic diseases; Z88.6 Allergy status to analgesic agent; Z87.440 Personal history of urinary (tract) infections; Z88.8 Allergy status to other drugs, medicaments and biological substances
CPT/HCPCS: 36415; 71045; 80053; 85025; 87804

== ENCOUNTER 2018-10-31 18:08 | Emergency (ER) | payer SELFPAY ==
[~2018-10-31] VITALS: Ht 160 cm; Wt 136.1 kg
--- NOTE | 2018-10-31 18:20 | NUR ---
ATTEMPT TO CALL PT BACK ET PT IN THE BATHROOM.
--- OUTSIDE RECORDS SUMMARY | 2018-10-31 18:20 | XMS REPORT | Continuity of Care Document ---
Author Author [facility] Organization [facility] Address Unknown Phone Unavailable Allergies Active Description Code Type Severity Reaction Onset Reported/Identified Relationship to Patient Clinical Status Yes No Known Drug Allergies [id number] Drug Allergy Unknown N/A 06/28/2010 Yes NSAIDS (Non-Steroidal Anti-Inflamma [id number] Drug Allergy Unknown N/A Yes tramadol [id number] Drug Allergy Unknown N/A 01/05/2015 Yes acetaminophen [id number] Drug Allergy Mild HIVES 10/11/2015 Medications There [...] MD Ot R30.0 DYSURIA 05/22/2016 MINOR ANNA ROOFER GYPSUM Ot E27.9 DISORDER OF ADRENAL GLAND, UNSPECIFIED 05/24/2016 MINOR ANNA ROOFER GYPSUM Ot E27.9 DISORDER OF ADRENAL GLAND, UNSPECIFIED 06/06/2016 MINOR ANNA ROOFER GYPSUM Ot E27.9 DISORDER OF ADRENAL GLAND, UNSPECIFIED 06/06/2016 MINOR ANNA ROOFER GYPSUM Ot E27.9 DISORDER OF ADRENAL GLAND, UNSPECIFIED 06/07/2016 MINOR ANNA ROOFER GYPSUM Ot E27.9 DISORDER OF ADRENAL GLAND, UNSPECIFIED 07/28/2016 MINOR ANNA [facility] Ot E27.9 DISORDER OF ADRENAL GLAND, UNSPECIFIED 01/17/2017 MINOR ANNA ROOFER GYPSUM Ot E27.9 DISORDER OF ADRENAL GLAND, UNSPECIFIED 01/17/2017 MINOR ANNA ROOFER GYPSUM Ot E27.9 DISORDER OF ADRENAL GLAND, UNSPECIFIED [...] OBJE 01/17/2017 GEORGE ANDRADE APRN Ot Y92.[address] [facility] [address] IN [facility] NON-INSTITUT (PRIVATE 01/17/2017 GEORGE ANDRADE APRN Ot [...] GASTRO-ESOPHAGEAL REFLUX DISEASE WITHOUT 05/11/2017 MINOR ANNA ROOFER GYPSUM Ot E27.9 DISORDER OF ADRENAL GLAND, UNSPECIFIED 05/11/2017 MINOR ANNA ROOFER GYPSUM Ot E27.9 DISORDER OF ADRENAL GLAND, UNSPECIFIED 08/30/2017 GEORGE ANDRADE APRN Ot F17.210 NICOTINE DEPENDENCE, CIGARETTES, UNCOMPL 08/30/2017 ANDRADE, PETER J ROOFER GYPSUM Ot F41.9 ANXIETY DISORDER, UNSPECIFIED 08/30/2017 GEORGE ANDRADE ROOFER GYPSUM Ot I10 ESSENTIAL (PRIMARY) HYPERTENSION 08/30/2017 GEORGE ANDRADE ROOFER GYPSUM Ot K05.30 CHRONIC PERIODONTITIS, UNSPECIFIED 08/30/2017 GEORGE ANDRADE ROOFER GYPSUM Ot K08.89 OTHER SPECIFIED DISORDERS OF TEETH AND S 08/30/2017 GEORGE ANDRADE ROOFER GYPSUM Ot K21.9 GASTRO-ESOPHAGEAL REFLUX DISEASE WITHOUT 03/07/2018 ALFONZO CONTRERASIS Ot F32.9 MAJOR DEPRESSIVE DISORDER, SINGLE EPISOD 03/07/2018 BERNVIKRAM WILMER Ot F41.9 ANXIETY DISORDER, UNSPECIFIED 03/07/2018 BERNOT WILMER Ot I10 ESSENTIAL (PRIMARY) HYPERTENSION 03/07/2018 BERNALFONZO SUEIS Ot K12.0 RECURRENT ORAL APHTHAE 03/07/2018 BERNVIKRAM WILMER Ot K13.70 UNSPECIFIED LESIONS OF ORAL MUCOSA 03/07/2018 ALFONZO CONTRERASIS Ot K21.9 GASTRO-ESOPHAGEAL REFLUX DISEASE WITHOUT 03/07/2018 BERNALFONZO SUEIS Ot Z77.22 CNTCT W AND EXPSR TO ENVIRON TOBACCO SMO 03/07/2018 BERNALFONZO SUEIS Ot Z88.6 ALLERGY STATUS TO ANALGESIC AGENT STATUS 03/08/2018 GEORGE ANDRADE ROOFER GYPSUM Ot F32.9 MAJOR DEPRESSIVE DISORDER, SINGLE EPISOD 03/08/2018 GEORGE ANDRADE ROOFER GYPSUM Ot F41.9 ANXIETY DISORDER, UNSPECIFIED 03/08/2018 GEORGE ANDRADE ROOFER GYPSUM Ot F60.9 PERSONALITY DISORDER, UNSPECIFIED 03/08/2018 GEORGE ANDRADE ROOFER GYPSUM Ot I10 ESSENTIAL (PRIMARY) HYPERTENSION 03/08/2018 GEORGE ANDRADE ROOFER GYPSUM Ot K05.10 CHRONIC GINGIVITIS, PLAQUE INDUCED 03/08/2018 GEORGE ANDRADE ROOFER GYPSUM Ot K12.0 RECURRENT ORAL APHTHAE 03/08/2018 GEORGE ANDRADE ROOFER GYPSUM Ot K21.9 GASTRO-ESOPHAGEAL REFLUX DISEASE WITHOUT 03/08/2018 GEORGE ANDRADE ROOFER GYPSUM Ot Z77.22 CNTCT W AND EXPSR TO ENVIRON TOBACCO SMO 03/08/2018 GEORGE ANDRADE ROOFER GYPSUM Ot Z88.6 ALLERGY STATUS TO ANALGESIC AGENT STATUS 03/11/2018 GEORGE ANDRADE ROOFER GYPSUM Ot F32.9 MAJOR DEPRESSIVE DISORDER, SINGLE EPISOD 03/11/2018 GEORGE ANDRADE ROOFER GYPSUM Ot F41.9 ANXIETY DISORDER, UNSPECIFIED 03/11/2018 GEORGE ANDRADE ROOFER GYPSUM Ot F60.9 PERSONALITY DISORDER, UNSPECIFIED 03/11/2018 GEORGE ANDRADE ROOFER GYPSUM Ot I10 ESSENTIAL (PRIMARY) HYPERTENSION 03/11/2018 GEORGE ANDRADE ROOFER GYPSUM Ot K05.10 CHRONIC GINGIVITIS, PLAQUE INDUCED 03/11/2018 GEORGE ANDRADE ROOFER GYPSUM Ot K12.0 RECURRENT ORAL APHTHAE 03/11/2018 GEORGE ANDRADE ROOFER GYPSUM Ot K21.9 GASTRO-ESOPHAGEAL REFLUX DISEASE WITHOUT 03/11/2018 GEORGE ANDRADE ROOFER GYPSUM Ot Z77.22 CNTCT W AND EXPSR TO ENVIRON TOBACCO SMO 03/11/2018 GEORGE ANDRADE ROOFER GYPSUM Ot Z88.6 ALLERGY STATUS TO ANALGESIC AGENT STATUS 03/12/2018 BERNALFONZO SUEIS Ot F32.9 MAJOR DEPRESSIVE DISORDER, SINGLE EPISOD 03/12/2018 BERNALFONZO SUEIS Ot F41.9 ANXIETY DISORDER, UNSPECIFIED 03/12/2018 BERNOT WILMER Ot I10 ESSENTIAL (PRIMARY) HYPERTENSION 03/12/2018 BERNOT WILMER Ot K12.0 RECURRENT ORAL APHTHAE 03/12/2018 BERNOT, WILMER Ot K13.70 UNSPECIFIED LESIONS OF ORAL MUCOSA 03/12/2018 BERNVIKRAM WILMER Ot K21.9 GASTRO-ESOPHAGEAL REFLUX DISEASE WITHOUT 03/12/2018 BERNOT WILMER Ot Z77.22 CNTCT W AND EXPSR TO ENVIRON TOBACCO SMO 03/12/2018 BERNVIKRAM WILMER Ot Z88.6 ALLERGY STATUS TO ANALGESIC AGENT STATUS 06/24/2018 JUS TAPIA MD Ot F17.210 NICOTINE DEPENDENCE, CIGARETTES, UNCOMPL 06/24/2018 JUS TAPIA MD Ot F32.9 MAJOR DEPRESSIVE DISORDER, SINGLE EPISOD 06/24/2018 JUS TAPIA MD Ot F41.9 ANXIETY DISORDER, UNSPECIFIED 06/24/2018 JUS TAPIA MD Ot I10 ESSENTIAL (PRIMARY) HYPERTENSION 06/24/2018 JUS TAPIA MD Ot J06.9 ACUTE UPPER RESPIRATORY INFECTION, UNSPE 06/24/2018 JUS TAPIA MD Ot K21.9 GASTRO-ESOPHAGEAL REFLUX DISEASE WITHOUT 06/24/2018 JUS TAPIA MD Ot R05 COUGH 06/24/2018 JUS TAPIA MD Ot Z86.19 PERSONAL HISTORY OF OTHER INFECTIOUS AND 06/24/2018 JUS TAPIA MD Ot Z87.440 PERSONAL HISTORY OF URINARY (TRACT) INFE 06/24/2018 JUS TAPIA MD Ot Z88.6 ALLERGY STATUS TO ANALGESIC AGENT STATUS 06/24/2018 JUS TAPIA MD Ot Z88.8 ALLERGY STATUS TO OTH DRUG/MEDS/BIOL SUB 07/18/2018 MINOR ANNA ROOFER GYPSUM Ot E27.9 DISORDER OF ADRENAL GLAND, UNSPECIFIED 07/18/2018 MINOR ANNA ROOFER GYPSUM Ot E27.9 DISORDER OF ADRENAL GLAND, UNSPECIFIED 07/19/2018 GEORGE ANDRADE APRN Ot F32.9 MAJOR DEPRESSIVE DISORDER, SINGLE EPISOD 07/19/2018 GEORGE ANDRADE APRN Ot F41.9 ANXIETY DISORDER, UNSPECIFIED 07/19/2018 GEORGE ANDRADE APRN Ot F60.9 PERSONALITY DISORDER, UNSPECIFIED 07/19/2018 GEORGE ANDRADE APRN Ot I10 ESSENTIAL (PRIMARY) HYPERTENSION 07/19/2018 GEORGE ANDRADE APRN Ot K05.10 CHRONIC GINGIVITIS, PLAQUE INDUCED 07/19/2018 GEORGE ANDRADE APRN Ot K12.0 RECURRENT ORAL APHTHAE 07/19/2018 GEORGE ANDRADE APRN Ot K21.9 GASTRO-ESOPHAGEAL REFLUX DISEASE WITHOUT 07/19/2018 GEORGE ANDRADE APRN Ot Z77.22 CNTCT W AND EXPSR TO ENVIRON TOBACCO SMO 07/19/2018 GEORGE ANDRADE APRN Ot Z88.6 ALLERGY STATUS [...] FOR INFLUENZA A AND B ANTIGENS BY [facility] Complete blood count (CBC) with automated white [...] Status Pt. Type Provider Facility Loc./Unit Complaint [id number] 06/21/2018 09:43:00 06/21/2018 12:09:00 DIS Outpatient JUS TAPIA MD [facility] ER COUGH;WEAKNESS [id number] 03/08/2018 20:09:00 03/08/2018 20:35:00 DIS Outpatient GEORGE ANDRADE APRN [facility] ER CANKER SORE/EXCESSIVE BLEEDING [id number] 03/07/2018 19:25:00 03/07/2018 20:09:00 DIS Emergency WILMER CONTRERAS [facility] ER GUMS SWELLING/BLEEDING [id number] 08/30/2017 19:07:00 08/30/2017 20:03:00 DIS Emergency GEORGE ANDRADE APRN [facility] ER DENTAL PAIN [id number] 04/07/2017 20:33:00 04/07/2017 21:35:00 DIS Emergency FABRIZIO LUCIA [facility] ER L SIDE MOUTH PAIN [id number] 01/17/2017 20:33:00 01/17/2017 21:22:00 DIS Emergency GEORGE ANDRADE APRN [facility] ER SORE THROAT [id number] 06/06/2016 08:14:00 06/06/2016 23:59:59 CLS Outpatient MINOR ANNAP [facility] RAD ADRENAL MASS LT [id number] 05/20/2016 08:53:00 05/20/2016 23:59:59 CLS Outpatient MINOR ANNA ROOFER GYPSUM [facility] RAD ADRENAL MASS LT [id number] 04/21/2016 08:31:00 04/21/2016 11:05:00 DIS Emergency REGNIA SHAY, JUS Clark [facility] ER RIGHT FLANK PAIN [id number] 01/05/2015 12:04:00 01/05/2015 14:15:00 DIS Emergency GEORGE ANDRADE APRN [facility] ER BACK AND LEG PAIN [id number] 02/07/2013 16:37:00 02/07/2013 23:59:59 CLS Outpatient [id number] 10/12/2015 06:57:00 Document Registration [id number] 06/27/2015 15:00:00 ACT Inpatient FRANSICO ISAACS MD [facility] 4TH R ORBITAL BLOWOUT FRACT ABNORMAL CT BRAIN IMAGERY [id number] 12/15/2012 12:32:00 Document Registration [id number] 12/12/2012 14:45:00 Document Registration [id number] 08/29/2012 08:19:00 Document Registration [id number] 09/09/2010 17:06:00 Document Registration [id number] 06/28/2010 17:10:00 Document Registration [email or web address] 01/05/2015 12:05:08 ACT Document Registration
[2018-10-31] MEDS ORDERED: PRD20T PO (18:41)
--- NOTE | 2018-10-31 18:41 | ED Chest Pain ---
General Chief Complaint: Chest Pain Stated Complaint: CHEST PAIN Source: patient Exam Limitations: no limitations History of Present Illness Date Seen by Provider: Oct 31, 2018 Time Seen by Provider: 18:38 Initial Comments To ER with reports of chest pain worse with deep breathing, talking loud, laughing. She states that she is just getting over a cough last week. She still has a bit of nasal drainage. No fevers or chills. Timing/Duration: 1-2 days Severity/Quality: moderate Location: central Radiation: no radiation Activities at Onset: none Prior CP/Workup: no prior chest pain ASA po SHOE SHANKER: No NTG SL SHOE SHANKER: No Allergies and Home Medications Allergies Coded Allergies: acetaminophen (Verified Allergy, Mild, HIVES, 10/11/15) tramadol (Unverified Allergy, Unknown, 01/05/15) Home Medications Amoxicillin 500 Mg Capsule, 500 MG PO TID Prescribed by: GEORGE ANDRADE on 03/08/182024 Chlorhexidine Gluconate 473 Ml Mouthwash, 45 ML MM BID Prescribed by: GEORGE ANDRADE on 03/08/182024 Patient Home Medication List Home Medication List Reviewed: Yes Review of Systems Review of Systems Constitutional: see HPI EENTM: No Symptoms Reported Respiratory: See HPI; Denies Cough, Denies Shortness of Air Cardiovascular: See HPI, Chest Pain Gastrointestinal: No Symptoms Reported Genitourinary: No Symptoms Reported Musculoskeletal: no symptoms reported Skin: no symptoms reported Psychiatric/Neurological: No Symptoms Reported Endocrine: No Symptoms Reported Past Cbjxrnj-Tucmbk-Ihipze Hx Patient Social History Type Used: Cigarettes 2nd Hand Smoke Exposure: Yes Recent Foreign Travel: No Contact w/Someone Who Travel: No Recent Hopitalizations: No Immunizations Up To Date Tetanus Booster (TDap): Unknown Seasonal Allergies Seasonal Allergies: No Past Medical History Surgeries: No Respiratory: No Cardiac: No Hypertension Neurological: No Reproductive Disorders: No Female Reproductive Disorders: Denies Sexually Transmitted Disease: Yes (TRICHAMONIS) Genitourinary: No UTI-Chronic Gastrointestinal: No Gastroesophageal Reflux Musculoskeletal: No Endocrine: No HEENT: No Cancer: No Psychosocial: No Anxiety, Violent Behavior, Depression Integumentary: No Blood Disorders: No Adverse Reaction/Blood Tranf: No Family Medical History Diabetes mellitus 19 MOTHER Hypertension 19 FATHER 19 MOTHER Thyroid disease 19 MOTHER No Pertinent Family Hx Physical Exam Vital Signs Capillary Refill : Height, Weight, BMI Height: 5'4.00" Weight: 250lbs. 0oz. 113.676942vf; 48.06 BMI Method:Stated General Appearance: No Apparent Distress, WD/WN HEENT: PERRL/EOMI, TMs Normal, Normal ENT Inspection Neck: Full Range of Motion, Normal Inspection Respiratory: No Accessory Muscle Use, No Respiratory Distress Cardiovascular: Regular Rate, Rhythm, Normal Peripheral Pulses Gastrointestinal: Normal Bowel Sounds, Non Tender, Soft Neurologic/Psychiatric: Alert, Oriented x3 Skin: Normal Color, Warm/Dry Departure Impression Primary Impression: Pleuritic chest pain Disposition: HOME, SELF-CARE Condition: Stable Departure-Patient Inst. Decision time for Depature: 18:40 Referrals: NO,LOCAL PHYSICIAN (PCP/Family) Primary Care Physician Patient Instructions: Pleuritic Chest Pain (DC) Add. Discharge Instructions: 1. Steroids as directed 2. Return to ER for any concerns 3. Follow-up with your doctor next week All discharge instructions reviewed with patient and/or family. Voiced understanding. Scripts Prednisone (Prednisone) 20 Mg Tab 40 MG PO DAILY, #8 TAB Prov: GEORGE ANDRADE APRN 10/31/18 Work/School Note: Work Release Form Date Seen in the Emergency Department: Oct 31, 2018 Return to Work: Nov 02, 2018 GEORGE ANDRADE APRN Oct 31, 2018 18:41
[2018-10-31 19:15] VITALS: BP 0/0
--- NOTE | 2018-10-31 19:18 | Diagnostic Imaging Report ---
INDICATION: Chest pain. Comparison is made with prior examination from 06/21/18. FINDINGS: The heart size, mediastinal configuration, and pulmonary vascularity are within normal limits. There is no pleural effusion, pneumothorax, or pneumonia. The osseous structures are unremarkable. IMPRESSION: No acute cardiopulmonary abnormality. Dictated by: Dictated on workstation # [id number]
== END 2018-10-31 19:15 | disposition home or self-care (01) ==
LOC: EDUNIT# 18:08 → ER 18:13
DX: R07.81 Pleurodynia (principal); I10 Essential (primary) hypertension; K21.9 Gastro-esophageal reflux disease without esophagitis; F41.9 Anxiety disorder, unspecified; F32.9 Major depressive disorder, single episode, unspecified; Z82.49 Family history of ischemic heart disease and other diseases of the circulatory system; Z86.19 Personal history of other infectious and parasitic diseases; Z87.440 Personal history of urinary (tract) infections; Z88.6 Allergy status to analgesic agent; Z88.8 Allergy status to other drugs, medicaments and biological substances; Z77.22 Contact with and (suspected) exposure to environmental tobacco smoke (acute) (chronic)
CPT/HCPCS: 71046

== ENCOUNTER 2019-02-27 08:30 | Emergency (ER) | payer SELFPAY ==
[~2019-02-27] VITALS: Ht 162.6 cm; Wt 144.7 kg
[~2019-02-27 08:30] MED LIST changes: +PRD20T PO
[2019-02-27] MEDS ORDERED: LACTATED RINGERS 1,000 ML IV ONE (08:57)
[2019-02-27] MEDS ORDERED: ONDANSETRON 4 MG/2 ML (SDV) Z0FRAN IVP ONE (09:00)
[2019-02-27] MEDS ORDERED: FAMOTIDINE 20MG/2ML IV (PEPCID) IVP ONE (09:00)
[2019-02-27] MEDS ORDERED: HYOSCYAMINE 0.125 MG (LEVSIN) TAB PO ONE (09:00)
[2019-02-27 09:05] LABS: BASOPHILS % (AUTO) 0 % (0-10); EOSINOPHILS # (AUTO) 0.1 10^3/uL (0.0-0.3); EOSINOPHILS % (AUTO) 1 % (0-10); HEMATOCRIT 38 % (35-52); HEMOGLOBIN 12.1 G/DL (11.5-16.0); LYMPHOCYTES # (AUTO) 2.4 X 10^3 (1.0-4.0); LYMPHOCYTES % (AUTO) 48 % (12-44); MEAN CORPUSCULAR HEMOGLOBIN 26 PG (25-34); MEAN CORPUSCULAR HGB CONC 32 G/DL (32-36); MEAN CORPUSCULAR VOLUME 80 FL (80-99); MEAN PLATELET VOLUME 9.2 FL (7.4-10.4); MONOCYTES # (AUTO) 0.6 X 10^3 (0.0-1.0); MONOCYTES % (AUTO) 13 % (0-12); NEUTROPHILS # (AUTO) 1.9 X 10^3 (1.8-7.8); NEUTROPHILS % (AUTO) 38 % (42-75); PLATELET COUNT 320 10^3/uL (130-400); RED CELL DISTRIBUTION WIDTH 15.3 % (10.0-14.5); WHITE BLOOD COUNT 5.1 10^3/uL (4.3-11.0)
[2019-02-27 09:20] LABS: ALANINE AMINOTRANSFERASE 27 U/L (0-55); ALBUMIN 4.1 GM/DL (3.2-4.5); ALKALINE PHOSPHATASE 52 U/L (40-136); BILIRUBIN,TOTAL 0.2 MG/DL (0.1-1.0); BUN/CREATININE RATIO 10; CALCIUM 9.4 MG/DL (8.5-10.1); CARBON DIOXIDE 21 MMOL/L (21-32); CHLORIDE 108 MMOL/L (98-107); CREATININE SERUM 0.96 MG/DL (0.60-1.30); GFR ESTIMATED > 60; GLUCOSE 89 MG/DL (70-105); LIPASE 6 U/L (8-78); POTASSIUM 4.1 MMOL/L (3.6-5.0); SODIUM 137 MMOL/L (135-145); TOTAL PROTEIN 7.9 GM/DL (6.4-8.2)
[2019-02-27 09:23] LABS: BILIRUBIN,URINE NEGATIVE (NEGATIVE); CLARITY,URINE CLEAR; COLOR,URINE YELLOW; GLUCOSE, URINE (UA) NEGATIVE (NEGATIVE); KETONES,URINE NEGATIVE (NEGATIVE); LEUKOCYTE ESTERASE ,URINE NEGATIVE (NEGATIVE); NITRITE,URINE NEGATIVE (NEGATIVE); PH,URINE 8 (5-9); PROTEIN,URINE NEGATIVE (NEGATIVE); UROBILINOGEN,URINE NORMAL (NORMAL)
[2019-02-27 09:31] LABS: BACTERIA,URINE TRACE /HPF
--- NOTE | 2019-02-27 09:53 | ED GI ---
General Chief Complaint: Abdominal/GI Problems Stated Complaint: ABD PAIN Nursing Triage Note: Pt reports eating [employer] last night and woke up with N/V/D, and cramping this morning. Pt reports trying tums with no relief. Sepsis Screen: No Definite Risk Source of Information: Patient Exam Limitations: No Limitations History of Present Illness Date Seen by Provider: Feb 27, 2019 Time Seen by Provider: 08:47 Initial Comments This 23-year-old young lady presents to the emergency room with complaints of central abdominal discomfort and cramping associated with nausea, vomiting, and diarrhea that started this morning around 06:00. She is not getting relief of her symptoms when she has a bowel movement. After several bouts of emesis her nausea is now lifting. She reports being on phentermine and Topamax for weight loss. This seems to cause her some acid reflux. She has no primary care provider but recently saw a physician in [place] for weight loss management. She is afebrile. Allergies and Home Medications Allergies Coded Allergies: acetaminophen (Verified Allergy, Mild, HIVES, 10/11/15) tramadol (Unverified Allergy, Unknown, 01/05/15) Home Medications Hyoscyamine Sulfate 0.125 Mg Tab.subl, 0.125 MG SL Q4H PRN for CRAMPS Prescribed by: SCOOBY GUTIERREZ on 02/27/19 0954 Ondansetron 4 Mg Tab.rapdis, 4 MG SL Q4H PRN for NAUSEA/VOMITING-1ST LINE Prescribed by: SCOOBY GUTIERREZ on 02/27/19 0954 Prednisone 20 Mg Tab, 40 MG PO DAILY Prescribed by: GEORGE ANDRADE on 10/31/18 0913 Patient Home Medication List Home Medication List Reviewed: Yes Review of Systems Review of Systems Constitutional: no symptoms reported EENTM: No Symptoms Reported Respiratory: No Symptoms Reported Cardiovascular: No Symptoms Reported Gastrointestinal: See HPI Genitourinary: No Symptoms Reported Musculoskeletal: no symptoms reported Skin: no symptoms reported Psychiatric/Neurological: No Symptoms Reported Endocrine: No Symptoms Reported Past Cixxwis-Zbalxw-Mwwqmg Hx Past Med/Social Hx: Reviewed and Corrections made Patient Social History Alcohol Use: Occasionally Uses Recreational Drug Use: No Smoking Status: Current Everyday Smoker Type Used: Cigarettes 2nd Hand Smoke Exposure: Yes Recent Foreign Travel: No Contact w/Someone Who Travel: No Recent Infectious Disease Expo: No Recent Hopitalizations: No Immunizations Up To Date Tetanus Booster (TDap): Unknown Seasonal Allergies Seasonal Allergies: No Past Medical History Surgeries: No Respiratory: No Cardiac: Yes Hypertension Neurological: No Reproductive Disorders: No Female Reproductive Disorders: Denies Sexually Transmitted Disease: Yes (TRICHAMONIS) Genitourinary: No UTI-Chronic Gastrointestinal: No Gastroesophageal Reflux Musculoskeletal: No Endocrine: Yes (obesity) HEENT: No Cancer: No Psychosocial: No Anxiety, Violent Behavior, Depression Integumentary: No Blood Disorders: No Adverse Reaction/Blood Tranf: No Family Medical History Diabetes mellitus 19 MOTHER Hypertension 19 FATHER 19 MOTHER Thyroid disease 19 MOTHER No Pertinent Family Hx Physical Exam Vital Signs Vital Signs - First Documented 02/27/19 08:30 Temp 97.4 Pulse 66 Resp 16 B/P (MAP) 151/96 (114) Pulse Ox 100 O2 Delivery Room Air Capillary Refill : Less Than 3 Seconds Height/Weight/BMI Height: 5'4.00" Weight: 319lbs. 0oz. 144.803450wz; 48.06 BMI Method:Stated General Appearance: WD/WN, no apparent distress, obese HEENT: PERRL/EOMI, normal ENT inspection, pharynx normal Neck: normal inspection Respiratory: lungs clear, normal breath sounds, no respiratory distress, no accessory muscle use Cardiovascular: regular rate, rhythm, no edema, no murmur Gastrointestinal: normal bowel sounds, non tender, soft Extremities: normal inspection, no pedal edema Neurologic/Psychiatric: elevated guard II-XII nml as tested, no motor/sensory deficits, alert, normal mood/affect, oriented x 3 Skin: normal color, warm/dry Progress/Results/Core Measures Results/Orders Lab Results Laboratory Tests Test 02/27/19 08:40 02/27/19 09:00 Range/Units White Blood Count 5.1 4.3-11.0 10^3/uL Red Blood Count 4.71 4.35-5.85 10^6/uL Hemoglobin 12.1 11.5-16.0 G/DL Hematocrit 38 35-52 % Mean Corpuscular Volume 80 80-99 FL Mean Corpuscular Hemoglobin 26 25-34 PG Mean Corpuscular Hemoglobin Concent 32 32-36 G/DL Red Cell Distribution Width 15.3 H 10.0-14.5 % Platelet Count 320 130-400 10^3/uL Mean Platelet Volume 9.2 7.4-10.4 FL Neutrophils (%) (Auto) 38 L 42-75 % Lymphocytes (%) (Auto) 48 H 12-44 % Monocytes (%) (Auto) 13 H 0-12 % Eosinophils (%) (Auto) 1 0-10 % Basophils (%) (Auto) 0 0-10 % Neutrophils # (Auto) 1.9 1.8-7.8 X 10^3 Lymphocytes # (Auto) 2.4 1.0-4.0 X 10^3 Monocytes # (Auto) 0.6 0.0-1.0 X 10^3 Eosinophils # (Auto) 0.1 0.0-0.3 10^3/uL Basophils # (Auto) 0.0 0.0-0.1 10^3/uL Sodium Level 137 135-145 MMOL/L Potassium Level 4.1 3.6-5.0 MMOL/L Chloride Level 108 H 98-107 MMOL/L Carbon Dioxide Level 21 21-32 MMOL/L Anion Gap 8 5-14 MMOL/L Blood Urea Nitrogen 10 7-18 MG/DL Creatinine 0.96 0.60-1.30 MG/DL Estimat Glomerular Filtration Rate > 60 BUN/Creatinine Ratio 10 Glucose Level 89 70-105 MG/DL Calcium Level 9.4 8.5-10.1 MG/DL Corrected Calcium 9.3 8.5-10.1 MG/DL Total Bilirubin 0.2 0.1-1.0 MG/DL Aspartate Amino Transf (AST/SGOT) 45 H 5-34 U/L Alanine Aminotransferase (ALT/SGPT) 27 0-55 U/L Alkaline Phosphatase 52 40-136 U/L Total Protein 7.9 6.4-8.2 GM/DL Albumin 4.1 3.2-4.5 GM/DL Lipase 6 L 8-78 U/L Serum Test, Qualitative NEGATIVE NEGATIVE Urine Color YELLOW Urine Clarity CLEAR Urine pH 8 5-9 Urine Specific [place] 1.010 L 1.016-1.022 Urine Protein NEGATIVE NEGATIVE Urine Glucose (UA) NEGATIVE NEGATIVE Urine Ketones NEGATIVE NEGATIVE Urine Nitrite NEGATIVE NEGATIVE Urine Bilirubin NEGATIVE NEGATIVE Urine Urobilinogen NORMAL NORMAL MG/DL Urine Leukocyte Esterase NEGATIVE NEGATIVE Urine RBC (Auto) NEGATIVE NEGATIVE Urine RBC NONE /HPF Urine WBC NONE /HPF Urine Squamous Epithelial Cells 5-10 /HPF Urine Crystals NONE /LPF Urine Bacteria TRACE /HPF Urine Casts NONE /LPF Urine Mucus NEGATIVE /LPF Urine Culture Indicated NO My Orders Orders - SCOOBY MOCTEZUMA MD Ua Culture If Indicated (02/27/19 08:37) Ed Iv/Invasive Line Start (02/27/19 08:57) Lactated Ringers (Lr 1000 Ml Iv Solution (02/27/19 08:57) Famotidine Injection (Pepcid Injection) (02/27/19 09:00) Ondansetron Injection (Zofran Injectio (02/27/19 09:00) Hyoscyamine Sl Tablet (Levsin Sl Tablet) (02/27/19 09:00) Cbc With Automated Diff (02/27/19 08:57) Comprehensive Metabolic Panel (02/27/19 08:57) Hcg,Qualitative Serum (02/27/19 08:57) Lipase (02/27/19 08:57) Medications Given in ED Current Medications Medications Dose Ordered Sig/Domenica Route Start Time Stop Time Status Last Admin Dose Admin Famotidine 20 mg ONCE ONCE IVP 02/27/19 09:00 02/27/19 09:01 DC 02/27/19 09:11 20 MG Hyoscyamine Sulfate 0.25 mg ONCE ONCE PO 02/27/19 09:00 02/27/19 09:01 DC 02/27/19 09:10 0.25 MG Lactated Ringer's 1,000 ml @ 0 mls/hr Q0M ONCE IV 02/27/19 08:57 02/27/19 09:00 DC 02/27/19 09:09 1,000 MLS/HR Ondansetron HCl 8 mg ONCE ONCE IVP 02/27/19 09:00 02/27/19 09:01 DC 02/27/19 09:07 8 MG Vital Signs/I&O 02/27/19 02/27/19 08:30 10:04 Temp 97.4 97.4 Pulse 66 53 Resp 16 16 B/P (MAP) 151/96 (114) 154/88 (110) Pulse Ox 100 100 O2 Delivery Room Air Room Air Blood Pressure Mean: 114 Progress Progress Note : Progress Note Patient was feeling well after IV fluids, Zofran, Pepcid, and Levsin. Lab work was relatively unremarkable. Lymphocytic shift on the WBC would suggest viral illness. Departure Impression Primary Impression: Nausea vomiting and diarrhea Additional Impressions: Generalized abdominal cramping Acid reflux Qualified Codes: K21.9 - Gastro-esophageal reflux disease without esophagitis Disposition: 01 HOME, SELF-CARE Condition: Improved Departure-Patient Inst. Decision time for Depature: 09:49 Referrals: NO,LOCAL PHYSICIAN (PCP/Family) Primary Care Physician Patient Instructions: Acute Abdomen (Belly Pain), Viral Gastroenteritis, Nausea and Vomiting, Adult (DC) Add. Discharge Instructions: Consume a clear liquid diet today. Toward the end of the day you may try small quantities of bland food as tolerated. [place] food would include item such as banana, white chicken, white rice, toast, broth, Jell-O, plain potatoes, etc. Avoid milk products for 48 hours after symptoms resolve. For nausea and vomiting dissolve Zofran (ondansetron) under the tongue as prescribed every 4 hours as needed. For abdominal cramping and diarrhea you may take Levsin (hyoscyamine) dissolved under the tongue every 4 hours as needed. Return to the emergency room if you have worsening symptoms. You may take an antacid medication such as famotidine (Pepcid), omeprazole, etc. purchased [id number]. You may also use Tums. Consider stopping phentermine if it is causing acid reflux and not benefiting your weight loss program. Establish with a primary care provider in the near future. All discharge instructions reviewed with patient and/or family. Voiced understanding. Scripts Ondansetron (Ondansetron Odt) 4 Mg Tab.rapdis 4 MG SL Q4H PRN for NAUSEA/VOMITING-1ST LINE, #10 TAB Prov: SCOOBY MOCTEZUMA MD 02/27/19 Hyoscyamine Sulfate (Levsin-Sl) 0.125 Mg Tab.subl 0.125 MG SL Q4H PRN for CRAMPS, #10 TAB 0 Refills Prov: SCOOBY MOCTEZUMA MD 02/27/19 Work/School Note: Work Release Form Date Seen in the Emergency Department: Feb 27, 2019 Return to Work: Feb 28, 2019 Restrictions: No Restrictions SCOOBY MOCTEZUMA MD Feb 27, 2019 09:53
[2019-02-27] MEDS ORDERED: ONDA4TAB11 SL (09:54)
[2019-02-27] MEDS ORDERED: HYOS0.1283 SL (09:54)
[2019-02-27 10:04] VITALS: BP 154/88
== END 2019-02-27 10:04 | disposition home or self-care (01) ==
LOC: EDUNIT# 08:30 → ER 08:31
DX: K21.9 Gastro-esophageal reflux disease without esophagitis (principal); R11.2 Nausea with vomiting, unspecified; R19.7 Diarrhea, unspecified; I10 Essential (primary) hypertension; F41.9 Anxiety disorder, unspecified; F32.9 Major depressive disorder, single episode, unspecified; F17.210 Nicotine dependence, cigarettes, uncomplicated; Z86.19 Personal history of other infectious and parasitic diseases; Z82.49 Family history of ischemic heart disease and other diseases of the circulatory system; Z87.440 Personal history of urinary (tract) infections; Z88.6 Allergy status to analgesic agent; Z79.52 Long term (current) use of systemic steroids
CPT/HCPCS: 36415; 80053; 81000; 83690; 84703; 85025

== ENCOUNTER 2020-02-20 16:56 | Emergency (ER) | payer SELFPAY ==
[~2020-02-20] VITALS: Ht 162 cm; Wt 136.0 kg
[~2020-02-20 16:56] MED LIST changes: -HYDR-3456 PO; +HYDR-3457 PO; +HYOS0.1283 SL; +ONDA4TAB11 SL
--- NOTE | 2020-02-20 17:20 | NUR ---
COVID TESTING DONE
[2020-02-20] MEDS ORDERED: LACTATED RINGERS 1,000 ML IV ONE ×2 (17:21→17:22)
[2020-02-20 17:28] LABS: BASOPHILS % (AUTO) 0 % (0-10); EOSINOPHILS % (AUTO) 1 % (0-10); HEMATOCRIT 34 % (35-52); HEMOGLOBIN 11.2 G/DL (11.5-16.0); LYMPHOCYTES # (AUTO) 3.1 X 10^3 (1.0-4.0); LYMPHOCYTES % (AUTO) 41 % (12-44); MEAN CORPUSCULAR HEMOGLOBIN 26 PG (25-34); MEAN CORPUSCULAR HGB CONC 33 G/DL (32-36); MEAN CORPUSCULAR VOLUME 79 FL (80-99); MEAN PLATELET VOLUME 9.1 FL (7.4-10.4); MONOCYTES # (AUTO) 0.8 X 10^3 (0.0-1.0); MONOCYTES % (AUTO) 10 % (0-12); NEUTROPHILS # (AUTO) 3.6 X 10^3 (1.8-7.8); NEUTROPHILS % (AUTO) 48 % (42-75); PLATELET COUNT 304 10^3/uL (130-400); RED CELL DISTRIBUTION WIDTH 15.4 % (10.0-14.5); WHITE BLOOD COUNT 7.5 10^3/uL (4.3-11.0)
--- NOTE | 2020-02-20 17:40 | ED General ---
General Stated Complaint: CP/VOMITING/COUGH Source of Information: Patient Exam Limitations: No Limitations (JUDITH ROSENBAUM MD) History of Present Illness Date Seen by Provider: Feb 20, 2020 Time Seen by Provider: 17:10 Initial Comments Here with report of concerns about COVID-19 exposure and concerns for infection. 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 She developed abdominal symptoms several days ago including diarrhea and also has some central/upper chest discomfort that she describes as aching or pain. Has 2-3 watery diarrheas per day. Timing/Duration: 4-5 Days, Changing Over Time, Getting Worse (Today) Severity: Moderate Associated Systoms: No Cough, No Nausea/Vomiting, No Shortness of Air, No Weakness; Other (Body aches) (JUDITH ROSENBAUM MD) Allergies and Home Medications Allergies Coded Allergies: acetaminophen (Verified Allergy, Mild, HIVES, 10/11/15) hydrocodone (Verified Adverse Reaction, Unknown, Vomiting, 02/27/19) tramadol (Unverified Adverse Reaction, Unknown, Itching, 02/27/19) Patient Home Medication List Home Medication List Reviewed: Yes (JUDITH ROSENBAUM MD) Home Medication List Reviewed: Yes (ABDIRAHMAN GREEN DO) Review of Systems Review of Systems Constitutional: see HPI, chills; No fever EENTM: no symptoms reported Respiratory: see HPI Cardiovascular: see HPI; No edema, No palpitations Gastrointestinal: No abdominal pain; diarrhea; No nausea, No vomiting Genitourinary: no symptoms reported Musculoskeletal: no symptoms reported Skin: no symptoms reported Psychiatric/Neurological: No Symptoms Reported (JUDITH ROSENBAUM MD) Past Kxwxujh-Mndxay-Qtmshb Hx Past Med/Social Hx: Reviewed Nursing Past Med/Soc Hx (JUDITH ROSENBAUM MD) Patient Social History Alcohol Use: Occasionally Uses Recreational Drug Use: No Smoking Status: Current Everyday Smoker Type Used: Cigarettes 2nd Hand Smoke Exposure: Yes Recent Foreign Travel: No Contact w/Someone Who Travel: No Recent Hopitalizations: No (JUDITH ROSENBAUM MD) Immunizations Up To Date Tetanus Booster (TDap): Unknown (JUDITH ROSENBAUM MD) Seasonal Allergies Seasonal Allergies: No (JUDITH ROSENBAUM MD) Past Medical History Surgeries: No Respiratory: No Cardiac: Yes Hypertension Neurological: No Reproductive Disorders: No Female Reproductive Disorders: Denies Sexually Transmitted Disease: Yes (TRICHAMONIS) Genitourinary: No UTI-Chronic Gastrointestinal: No Gastroesophageal Reflux Musculoskeletal: No Endocrine: Yes (obesity) HEENT: No Cancer: No Psychosocial: No Anxiety, Violent Behavior, Depression Integumentary: No Blood Disorders: No Adverse Reaction/Blood Tranf: No (JUDITH ROSENBAUM MD) Family Medical History Reviewed Nursing Family Hx (JUDITH ROSENBAUM MD) Diabetes mellitus 19 MOTHER Hypertension 19 FATHER 19 MOTHER Thyroid disease 19 MOTHER No Pertinent Family Hx (JUDITH ROSENBAUM MD) Physical Exam Vital Signs Vital Signs - First Documented 02/20/20 17:15 Temp 37.1 Pulse 60 Resp 16 B/P (MAP) 137/83 (101) Pulse Ox 100 O2 Delivery Room Air (NORMA,ABDIRAHMAN K DO) Vital Signs Capillary Refill : (JUDITH ROSENBAUM MD) Height, Weight, BMI Height: 5'4.00" Weight: 319lbs. 0oz. [id number]; 48.06 BMI Method:Stated General Appearance: No Apparent Distress, WD/WN HEENT: PERRL/EOMI, Pharynx Normal Neck: Non Tender, Supple Respiratory: Lungs Clear, Normal Breath Sounds Cardiovascular: Regular Rate, Rhythm, No Murmur Gastrointestinal: Non Tender, Soft Back: Normal Inspection, No CVA Tenderness, No Vertebral Tenderness Extremity: Normal Range of Motion, Non Tender Neurologic/Psychiatric: Alert, Oriented x3 Skin: Normal Color, Warm/Dry (JUDITH ROSENBAUM MD) Progress/Results/Core Measures Suspected Sepsis SIRS Temperature: Pulse: Respiratory Rate: Laboratory Tests 02/20/20 17:15: White Blood Count 7.5 Blood Pressure / Mean: Laboratory Tests 02/20/20 17:15: Platelet Count 304 (JUDITH ROSENBAUM MD) Results/Orders Lab Results Laboratory Tests Test 02/20/20 17:15 02/20/20 17:20 Range/Units White Blood Count 7.5 4.3-11.0 10^3/uL Red Blood Count 4.32 L 4.35-5.85 10^6/uL Hemoglobin 11.2 L 11.5-16.0 G/DL Hematocrit 34 L 35-52 % Mean Corpuscular Volume 79 L 80-99 FL Mean Corpuscular Hemoglobin 26 25-34 PG Mean Corpuscular Hemoglobin Concent 33 32-36 G/DL Red Cell Distribution Width 15.4 H 10.0-14.5 % Platelet Count 304 130-400 10^3/uL Mean Platelet Volume 9.1 7.4-10.4 FL Neutrophils (%) (Auto) 48 42-75 % Lymphocytes (%) (Auto) 41 12-44 % Monocytes (%) (Auto) 10 0-12 % Eosinophils (%) (Auto) 1 0-10 % Basophils (%) (Auto) 0 0-10 % Neutrophils # (Auto) 3.6 1.8-7.8 X 10^3 Lymphocytes # (Auto) 3.1 1.0-4.0 X 10^3 Monocytes # (Auto) 0.8 0.0-1.0 X 10^3 Eosinophils # (Auto) 0.0 0.0-0.3 10^3/uL Basophils # (Auto) 0.0 0.0-0.1 10^3/uL D-Dimer 0.58 H 0.00-0.49 UG/ML Sodium Level 137 135-145 MMOL/L Potassium Level 3.8 3.6-5.0 MMOL/L Chloride Level 108 H 98-107 MMOL/L Carbon Dioxide Level 17 L 21-32 MMOL/L Anion Gap 12 5-14 MMOL/L Blood Urea Nitrogen 11 7-18 MG/DL Creatinine 0.82 0.60-1.30 MG/DL Estimat Glomerular Filtration Rate > 60 BUN/Creatinine Ratio 13 Glucose Level 78 70-105 MG/DL Calcium Level 9.2 8.5-10.1 MG/DL Corrected Calcium 9.1 8.5-10.1 MG/DL Total Bilirubin 0.4 0.1-1.0 MG/DL Aspartate Amino Transf (AST/SGOT) 18 5-34 U/L Alanine Aminotransferase (ALT/SGPT) 14 0-55 U/L Alkaline Phosphatase 45 40-136 U/L Troponin I < 0.028 <0.028 NG/ML C-Reactive Protein High Sensitivity 1.28 H 0.00-0.50 MG/DL Total Protein 7.8 6.4-8.2 GM/DL Albumin 4.1 3.2-4.5 GM/DL Urine Color YELLOW Urine Clarity SL CLOUDY Urine pH 6.0 5-9 [address]rine [address] [place] >=1.030 1.016-1.022 Urine Protein NEGATIVE NEGATIVE Urine Glucose (UA) NEGATIVE NEGATIVE Urine Ketones 1+ H NEGATIVE Urine Nitrite NEGATIVE NEGATIVE Urine Bilirubin 1+ H NEGATIVE Urine Urobilinogen 0.2 < = 1.0 MG/DL Urine Leukocyte Esterase 1+ H NEGATIVE Urine RBC (Auto) TRACE-I NEGATIVE Urine RBC 0-2 /HPF Urine WBC 10-25 H /HPF Urine Crystals PRESENT H /LPF Urine Amorphous Sediment FEW NAE URATES H /LPF Urine Bacteria TRACE /HPF Urine Casts NONE /LPF Urine Mucus SMALL H /LPF Urine Culture Indicated YES (ABDIRAHMAN GREEN DO) Medications Given in ED Current Medications Medications Dose Ordered Sig/Domenica Route Start Time Stop Time Status Last Admin Dose Admin Lactated Ringer's 1,000 ml @ 0 mls/hr Q0M ONCE IV 02/20/20 17:21 02/20/20 17:23 DC 02/20/20 17:25 1,000 MLS/HR (ABDIRAHMAN GREEN DO) Vital Signs/I&O 02/20/20 17:15 Temp 37.1 Pulse 60 Resp 16 B/P (MAP) 137/83 (101) Pulse Ox 100 O2 Delivery Room Air (ABDIRAHMAN GREEN DO) Vital Signs/I&O Capillary Refill : (JUDITH ROSENBAUM MD) Progress Note : Progress Note Seen and evaluated. IV, labs, UA, UCG, chest x-ray and EKG ordered. We will do COVID-19 testing due to exposure and body aches and chills. (JUDITH ROSENBAUM MD) Progress Note : Progress Note PT DISMISSED AT 1845 (ABDIRAHMAN GREEN DO) ECG Initial ECG Impression Date: Feb 20, 2020 Initial ECG Impression Time: 17:26 Initial ECG Rate: 67 Initial ECG Rhythm: Normal Sinus Initial ECG Impression: Normal (Going to early for we'll kyphosis is wellHas to ER on the site 1 we will have the upper and lower possibility of the on-site physical) Comment Sinus rhythm with normal axis. No evidence of ST elevation MD. No previous available for comparison. Interpreted by me. (JUDITH ROSENBAUM MD) Diagnostic Imaging Comments CXR-- NO ACUTE PROCESS, PER RADIOLOGIST REPORT AT 1843 Reviewed: Reviewed by Me (ABDIRAHMAN GREEN DO) Departure Impression Primary Impression: COVID P.U.I Disposition: 01 HOME, SELF-CARE Condition: Stable Departure-Patient Inst. Referrals: NO,LOCAL PHYSICIAN (PCP/Family) Primary Care Physician Patient Instructions: Chest Pain (DC), Coronavirus Disease 2019 (COVID-19) (DC), Diarrhea in Adolescents and Adults Add. Discharge Instructions: [place] diet for the next 24 hours and then advance as tolerated. Follow-up COVID-19 quarantine instructions until told if you're positive or negative. If positive, follow-up health department requirements but may include quarantine for up to 14 days. If negative, you should remain isolated until 3 days after her symptoms resolve. Follow with your Dr. in a few days for recheck as needed. Return for worse pain, fever, vomiting, weakness, breathing problems or other concerns as needed. You may take Pepcid or the generic famotidine 20 mg twice daily for the next 3-7 days and then daily thereafter as needed for stomach upset. Work/School Note: Work Release Form Date Seen in the Emergency Department: Feb 20, 2020 Return to Work: Feb 24, 2020 Restrictions: No Restrictions Other Restrictions Listed Below: Follow Health Dept rules if COVID positive JUDITH ROSENBAUM MD Feb 20, 2020 17:40 ABDIRAHMAN GREEN DO Feb 20, 2020 18:45
[2020-02-20 17:48] LABS: CLARITY,URINE SL CLOUDY; COLOR,URINE YELLOW; GLUCOSE, URINE (UA) NEGATIVE (NEGATIVE); KETONES,URINE 1+ (NEGATIVE); LEUKOCYTE ESTERASE ,URINE 1+ (NEGATIVE); NITRITE,URINE NEGATIVE (NEGATIVE); PROTEIN,URINE NEGATIVE (NEGATIVE)
--- NOTE | 2020-02-20 18:01 | NUR ---
COVID PAPERWORK FAXED TO [facility]
[2020-02-20 18:02] LABS: BACTERIA,URINE TRACE /HPF; RBC,URINE 0-2 /HPF
[2020-02-20 18:03] LABS: AMORPHOUS SEDIMENT,UR FEW AMOR URATES /LPF; BILIRUBIN,URINE 1+ (NEGATIVE)
[2020-02-20 18:04] LABS: ALANINE AMINOTRANSFERASE 14 U/L (0-55); ALBUMIN 4.1 GM/DL (3.2-4.5); ALKALINE PHOSPHATASE 45 U/L (40-136); BILIRUBIN,TOTAL 0.4 MG/DL (0.1-1.0); BUN/CREATININE RATIO 13; CALCIUM 9.2 MG/DL (8.5-10.1); CARBON DIOXIDE 17 MMOL/L (21-32); CHLORIDE 108 MMOL/L (98-107); CREATININE SERUM 0.82 MG/DL (0.60-1.30); GFR ESTIMATED > 60; GLUCOSE 78 MG/DL (70-105); POTASSIUM 3.8 MMOL/L (3.6-5.0); SODIUM 137 MMOL/L (135-145); TOTAL PROTEIN 7.8 GM/DL (6.4-8.2)
--- NOTE | 2020-02-20 18:37 | Diagnostic Imaging Report ---
INDICATION: Chest pain. EXAMINATION: Portable erect AP chest at 6:17 p.m. FINDINGS: The heart size is within normal limits and stable when compared to 10/31/2018. Both lung bases are partially obscured by vague areas of increased density. I suspect this finding is more likely due to superimposition of the breast/chest tissue than to a parenchymal abnormality. The upper lungs are clear. The mediastinum is not widened. The osseous structures are intact. IMPRESSION: 1. There is no evidence for an acute cardiopulmonary abnormality. 2. If clinical concern regarding an underlying abnormality persists, then a follow-up PA and lateral chest would be recommended for further study. Dictated by: Dictated on workstation # [id number]
[2020-02-20 18:48] VITALS: BP 143/79
== END 2020-02-20 18:48 | disposition home or self-care (01) ==
LOC: EDUNIT# 16:56 → ER 16:57
DX: R07.89 Other chest pain (principal); E66.9 Obesity, unspecified; F17.210 Nicotine dependence, cigarettes, uncomplicated; Z88.6 Allergy status to analgesic agent; Z20.828 Contact with and (suspected) exposure to other viral communicable diseases; Z88.5 Allergy status to narcotic agent; Z82.49 Family history of ischemic heart disease and other diseases of the circulatory system; Z68.43 Body mass index [BMI] 50.0-59.9, adult
CPT/HCPCS: 71045; 80053; 81000; 84484; 84703; 85025; 85379; 86141; 87088; 99284; U0002; 36415; 87635

== ENCOUNTER 2021-01-04 21:46 | Emergency (ER) | payer SELFPAY ==
[~2021-01-04] VITALS: Ht 162.5 cm; Wt 113.4 kg
[~2021-01-04 21:46] MED LIST changes: +BUPR150T24; -BUPR150T7
[2021-01-04 22:19] LABS: BILIRUBIN,URINE NEGATIVE (NEGATIVE); CLARITY,URINE CLEAR; COLOR,URINE YELLOW; GLUCOSE, URINE (UA) NEGATIVE (NEGATIVE); KETONES,URINE NEGATIVE (NEGATIVE); LEUKOCYTE ESTERASE ,URINE NEGATIVE (NEGATIVE); NITRITE,URINE NEGATIVE (NEGATIVE); PROTEIN,URINE NEGATIVE (NEGATIVE)
--- NOTE | 2021-01-04 22:21 | ED Upper Extremity ---
General Chief Complaint: Laceration Stated Complaint: R HAND LAC Source: patient Exam Limitations: no limitations History of Present Illness Date Seen by Provider: Jan 04, 2021 Time Seen by Provider: 22:10 Initial Comments Patient presents to the ER by private conveyance from home with chief complaint about 2 hours prior to arrival she got mad at her boyfriend and punched a wall with her dominant right hand. Lacerations along the dorsum of her hand and pain along her third and fourth metacarpal. She had a tetanus vaccine within the last 5 years. She says she was not having pain at first but now she is having fairly significant pain. She has not taken anything for it yet. Allergies and Home Medications Allergies Coded Allergies: acetaminophen (Verified Allergy, Mild, HIVES, 10/11/15) hydrocodone (Verified Adverse Reaction, Unknown, Vomiting, 02/27/19) tramadol (Unverified Adverse Reaction, Unknown, Itching, 02/27/19) Patient Home Medication List Home Medication List Reviewed: Yes Review of Systems Constitutional: No chills, No diaphoresis EENTM: No ear discharge, No ear pain Respiratory: No cough, No short of breath Cardiovascular: No Hx of Intervention, No palpitations Gastrointestinal: No abdominal pain, No constipation, No diarrhea Genitourinary: No discharge, No dysuria Control/STD Prophylaxis: None Musculoskeletal: see HPI; No back pain; joint pain All Other Systems Reviewed Negative Unless Noted: Yes Past Pggppvj-Uqdppr-Ifzoat Hx Patient Social History Alcohol Use: Denies Use Smoking Status: Current Everyday Smoker Type Used: Cigarettes 2nd Hand Smoke Exposure: Yes Recent Hopitalizations: No Immunizations Up To Date Tetanus Booster (TDap): Unknown Seasonal Allergies Seasonal Allergies: No Past Medical History Surgeries: No Respiratory: No Cardiac: Yes Hypertension Neurological: No Reproductive Disorders: No Female Reproductive Disorders: Denies Sexually Transmitted Disease: Yes (TRICHAMONIS) Genitourinary: No UTI-Chronic Gastrointestinal: No Gastroesophageal Reflux Musculoskeletal: No Endocrine: Yes (obesity) HEENT: No Cancer: No Psychosocial: No Anxiety, Violent Behavior, Depression Integumentary: No Blood Disorders: No Adverse Reaction/Blood Tranf: No Family Medical History Diabetes mellitus 19 MOTHER Hypertension 19 FATHER 19 MOTHER Thyroid disease 19 MOTHER No Pertinent Family Hx Physical Exam Vital Signs Vital Signs - First Documented 01/04/21 22:02 Temp 37.1 Pulse 97 Resp 18 B/P (MAP) 162/100 (120) Pulse Ox 100 O2 Delivery Room Air Capillary Refill : Height, Weight, BMI Height: 5'4.00" Weight: 319lbs. 0oz. 144.498360os; 51.00 BMI Method:Stated General Appearance: WD/WN, mild distress HEENT: PERRL/EOMI, pharynx normal Neck: full range of motion, normal inspection Cardiovascular: normal peripheral pulses, regular rate, rhythm Respiratory: no respiratory distress, no accessory muscle use Neurologic/Psychiatric: no motor/sensory deficits, alert, normal mood/affect, oriented x 3 Skin: other (3 and half centimeter laceration over the dorsum of the right hand over the fifth metacarpal skin flap over the fifth finger middle phalanx and small superficial abrasion/laceration on the fourth dorsal finger.) Procedures/Interventions Wound Location: Upper Extremities Other Wound Location Right hand over the fifth metacarpal Wound Length (cm): 4 Wound's Depth, Shape: linear, sub Q Wound Explored: no foreign body removed Irrigated w/ Saline (ccs): 250 Betadine Prep?: Yes (Chlorhexidine soap and normal saline) Anesthesia: 1% Lidocaine Volume Anesthetic (ccs): 4 Wound Debrided: minimal Suture: Prolene Suture Size: 4-0 Number of Sutures: 5 Layer Closure?: 1 Number Deep Layer Sutures: 0 Sterile Dressing Applied?: Yes Progress 5 simple interrupted sutures using 4-0 Prolene reapproximated the skin appropriately. Wound is hemostatic. We will dressed with Vaseline and gauze. Wound Location: Upper Extremities Other Wound Location Right hand fourth and fifth dorsal fingers Wound Length (cm): 1 Wound's Depth, Shape: superficial, linear Wound Explored: clean Irrigated w/ Saline (ccs): 250 Betadine Prep?: Yes (Chlorhexidine and sterile saline) Other Closure Supply: Wound Adhesive Progress Wound was thoroughly cleaned and dressed with cyanoacrylate Progress/Results/Core Measures Results/Orders Lab Results Laboratory Tests Test 01/04/21 22:10 Range/Units Urine Color YELLOW Urine Clarity CLEAR Urine pH 7.0 5-9 Urine Specific [place] 1.025 H 1.016-1.022 Urine Protein NEGATIVE NEGATIVE Urine Glucose (UA) NEGATIVE NEGATIVE Urine Ketones NEGATIVE NEGATIVE Urine Nitrite NEGATIVE NEGATIVE Urine Bilirubin NEGATIVE NEGATIVE Urine Urobilinogen 0.2 < = 1.0 MG/DL Urine Leukocyte Esterase NEGATIVE NEGATIVE Urine RBC (Auto) TRACE-I NEGATIVE Urine RBC 0-2 /HPF Urine WBC 0-2 /HPF Urine Squamous Epithelial Cells 5-10 /HPF Urine Crystals NONE /LPF Urine Bacteria NEGATIVE /HPF Urine Casts NONE /LPF Urine Mucus LARGE H /LPF Urine Other FEW SPERM H /HPF Urine Culture Indicated NO My Orders Orders - MARYBETH CHAVEZ Hand, Right, 3 Views (01/04/21 22:12) Ua Culture If Indicated (01/04/21 22:12) Urine Bedside (01/04/21 22:12) Naproxen Tablet (Naprosyn Tablet) (01/04/21 22:30) Lidocaine 1% Inj 20 Ml (Xylocaine 1% Inj (01/04/21 22:30) Medications Given in ED Current Medications Medications Dose Ordered Sig/Domenica Route Start Time Stop Time Status Last Admin Dose Admin Lidocaine HCl 20 ml ONCE ONCE INJ 01/04/21 22:30 01/04/21 22:31 DC 01/04/21 22:57 20 ML Naproxen 500 mg ONCE ONCE PO 01/04/21 22:30 01/04/21 22:31 DC 01/04/21 22:56 500 MG Vital Signs/I&O 01/04/21 22:02 Temp 37.1 Pulse 97 Resp 18 B/P (MAP) 162/100 (120) Pulse Ox 100 O2 Delivery Room Air Progress Progress Note : Time: 22:20 Progress Note Naprosyn, ice and will clean the wound up. We will get an x-ray of her hand and suture the wounds as appropriate. Diagnostic Imaging Diagonstic Imaging: Xray Plain Films/CT/US/NM/MRI: hand (Right) Comments No acute osseous abnormality on 3 view right hand. Reviewed: Reviewed by Me Departure Impression Primary Impression: Contusion of right hand Qualified Codes: S60.221A - Contusion of right hand, initial encounter Additional Impression: Laceration of right hand Qualified Codes: S61.411A - Laceration without foreign body of right hand, initial encounter Disposition: HOME, SELF-CARE Condition: Stable Departure-Patient Inst. Decision time for Depature: 23:21 Referrals: NO,LOCAL PHYSICIAN (PCP/Family) Primary Care Physician Patient Instructions: Laceration Repair With Stitches (DC), Laceration Repair With Glue ED Add. Discharge Instructions: Keep the wounds clean with regular soap and water. Washing your hands and showers is okay. Body wash, shampoo etc. is okay. Do not use antiseptic such as hydrogen peroxide, alcohol, Betadine/iodine or other similar astringents as this will prolong wound healing. Tylenol 1000 mg every 8 hours as necessary for pain. Naprosyn 500 mg twice a day as necessary for pain. Ice 20 minutes on every 2 hours while awake for the first 2 to 3 days to keep swelling and pain down. Wrap the hand with an Jian wrap or similar elastic bandage for compression and keep it elevated above the level of your heart to reduce swelling and pain. Return to the ER in 10 to 14 days to have the sutures removed. Return to the ER sooner if you are having increasing redness, swelling pain, discharge from the wound or fever. Keflex/cephalexin 1 tablet twice a day for the next 5 days to prevent infection. All discharge instructions reviewed with patient and/or family. Voiced understanding. Scripts Cephalexin (Cephalexin) 500 Mg Tablet 500 MG PO BID for 5 Days, #10 TAB 0 Refills Prov: MARYBETH CHAVEZ 01/04/21 Naproxen (Naprosyn) 500 Mg Tablet 500 MG PO BID for 14 Days, #30 TAB 0 Refills Prov: MARYBETH CHAVEZ 01/04/21 Work/School Note: Work Release Form Date Seen in the Emergency Department: Jan 04, 2021 Return to Work: Jan 05, 2021 Restrictions: Need Release from Doctor Other Restrictions Listed Below: Keep hand clean and dry and reduce usage of the right hand until 01/14/2021. MARYBETH CHAVEZ Jan 04, 2021 22:21
[2021-01-04 22:26] LABS: BACTERIA,URINE NEGATIVE /HPF; RBC,URINE 0-2 /HPF; WBC,URINE 0-2 /HPF
[2021-01-04 22:27] LABS: URINE OTHER FEW SPERM /HPF
[2021-01-04] MEDS ORDERED: NAPROXEN 250 MG (NAPROSYN) TABLET PO ONE (22:30)
[2021-01-04] MEDS ORDERED: LIDOCAINE 1% INJ 20 ML 20 ML VIAL INJ ONE (22:30)
[2021-01-04] MEDS ORDERED: NAPR-1071 PO (23:25)
[2021-01-04] MEDS ORDERED: CEPH500T PO (23:25)
[2021-01-04 23:48] VITALS: BP 148/89
--- NOTE | 2021-01-05 07:27 | Diagnostic Imaging Report ---
INDICATION: Checking for foreign bodies. Stuck hand through a glass window. Multiple lacerations. FINDINGS: 3 views of the right hand demonstrate normal ossification. No fracture, dislocation or foreign bodies present. IMPRESSION: Negative right hand. Dictated by: Dictated on workstation # [id number]
== END 2021-01-04 23:48 | disposition home or self-care (01) ==
LOC: EDUNIT# 21:46 → ER 21:47
DX: S61.411A Laceration without foreign body of right hand, initial encounter (principal); E66.9 Obesity, unspecified; I10 Essential (primary) hypertension; F17.210 Nicotine dependence, cigarettes, uncomplicated; Z88.5 Allergy status to narcotic agent; Z88.6 Allergy status to analgesic agent; Z68.43 Body mass index [BMI] 50.0-59.9, adult; W22.01XA Walked into wall, initial encounter
CPT/HCPCS: 73130; 81000; 84703

== ENCOUNTER 2021-03-22 13:36 | Emergency (ER) | payer SELFPAY ==
[~2021-03-22] VITALS: Ht 162 cm; Wt 144.0 kg
[~2021-03-22 13:36] MED LIST changes: +CEPH500T PO; +NAPR-1071 PO; -SULF1TAB35 PO; +SULF1TAB38 PO
--- NOTE | 2021-03-22 14:27 | ED Cough/URI ---
General Chief Complaint: Cough/Cold/Flu Symptoms Stated Complaint: EXPOURE,WEAKNESS, BODY ACHES,N/V, COUGH Nursing Triage Note: PT CO OF NAUSEA TODAY AND WAS EXPOSED TO COVID APPROX 3 DAYS AGO. PT STATES HAS HAD SOME DIARRHEA AND HAS NOT BEEN VACCINATED. PT STATES ALSO HAS NOT HAD PERIOD FOR OVER A MONTH. Source: patient Exam Limitations: no limitations History of Present Illness Date Seen by Provider: Mar 22, 2021 Time Seen by Provider: 14:07 Initial Comments Patient to the ER by EMS with chief complaint of 2 to 3 days ago she was exposed to a family of her who was positive for COVID-19. She was at the grocery store today when she started to have sweats, diarrhea and nausea without vomiting. She is having shortness of air chest pain diarrhea constipation or vomiting. She wants to be tested for COVID-19. She does not have a significant history of lung disease. She has not been vaccinated. Allergies and Home Medications Allergies Coded Allergies: acetaminophen (Verified Allergy, Mild, HIVES, 10/11/15) hydrocodone (Verified Adverse Reaction, Unknown, Vomiting, 02/27/19) tramadol (Unverified Adverse Reaction, Unknown, Itching, 02/27/19) Home Medications Cephalexin 500 Mg Tablet, 500 MG PO BID Prescribed by: MARYBETH CHAVEZ on 01/04/212324 Naproxen 500 Mg Tablet, 500 MG PO BID Prescribed by: MARYBETH CHAVEZ on 01/04/212324 Patient Home Medication List Home Medication List Reviewed: Yes Review of Systems Review of Systems Constitutional: No chills; diaphoresis; No dizziness EENTM: No ear discharge, No ear pain Respiratory: No cough, No short of breath Cardiovascular: No chest pain, No palpitations Gastrointestinal: No abdominal pain; diarrhea, nausea; No vomiting All Other Systems Reviewed Negative Unless Noted: Yes Past Esrzzki-Rpkksa-Xgvnvy Hx Patient Social History Tobacco Use?: No Use of E-Cig and/or Vaping dev: No Substance use?: No Alcohol Use?: Yes Alcohol Frequency: Several times a month Pt feels they are or have been: No Immunizations Up To Date Tetanus Booster (TDap): Unknown Seasonal Allergies Seasonal Allergies: No Past Medical History Surgeries: No Respiratory: No Cardiac: Yes Hypertension Neurological: No Reproductive Disorders: No Female Reproductive Disorders: Denies Sexually Transmitted Disease: Yes (TRICHAMONIS) Genitourinary: No UTI-Chronic Gastrointestinal: No Gastroesophageal Reflux Musculoskeletal: No Endocrine: Yes (obesity) HEENT: No Cancer: No Psychosocial: No Anxiety, Violent Behavior, Depression Integumentary: No Blood Disorders: No Adverse Reaction/Blood Tranf: No Family Medical History Diabetes mellitus 19 MOTHER Hypertension 19 FATHER 19 MOTHER Thyroid disease 19 MOTHER No Pertinent Family Hx Physical Exam Vital Signs - First Documented 03/22/21 13:45 Temp 35.9 Pulse 100 Resp 18 B/P (MAP) 146/80 (102) Pulse Ox 98 Capillary Refill : Less Than 3 Seconds Height: 5'4.00" Weight: 319lbs. 0oz. 144.911748nj; 54.00 BMI Method:Stated General Appearance: WD/WN, no apparent distress Eyes: Bilateral Eye Normal Inspection, Bilateral Eye PERRL, Bilateral Eye EOMI HEENT: PERRL/EOMI, pharynx normal Neck: full range of motion, normal inspection Respiratory: no respiratory distress, no accessory muscle use Cardiovascular: normal peripheral pulses, regular rate, rhythm Neurologic/Psychiatric: alert, normal mood/affect, oriented x 3 Skin: normal color, warm/dry Progress/Results/Core Measures Suspected Sepsis SIRS Temperature: Pulse: 100 Respiratory Rate: 18 Blood Pressure 146 /80 Mean: 102 Results/Orders Lab Results Laboratory Tests Test 03/22/21 13:50 03/22/21 14:45 Range/Units Influenza Type A (RT-PCR) Not Detected Not Detecte Influenza Type B (RT-PCR) Not Detected Not Detecte SARS-CoV-2 RNA (RT-PCR) Not Detected Not Detecte My Orders Orders - MARYBETH CHAVEZ Ua Culture If Indicated (03/22/21 13:47) Urine Bedside (03/22/21 13:47) Covid 19 Inhouse Test (03/22/21 14:00) Influenza A And B By Pcr (03/22/21 14:00) Vital Signs/I&O 03/22/21 13:45 Temp 35.9 Pulse 100 Resp 18 B/P (MAP) 146/80 (102) Pulse Ox 98 Capillary Refill : Less Than 3 Seconds Blood Pressure Mean: 102 Progress Note : Time: 14:27 Progress Note COVID-19 test ordered. If it is negative we will check some urine and other labs. Counseled her that she needs to be on quarantine after her exposure. Departure Impression Primary Impression: Gastroenteritis and colitis, viral Additional Impression: Close exposure to COVID-19 virus Disposition: 01 HOME, SELF-CARE Condition: Stable Departure-Patient Inst. Decision time for Depature: 15:10 Referrals: NO,LOCAL PHYSICIAN (PCP/Family) Primary Care Physician Patient Instructions: COVID-19 ED, Viral Gastroenteritis, Adult (DC) Add. Discharge Instructions: Drink plenty fluids. If your diarrhea persisting take 2 tablets of loperamide and 1 tablet every 4 hours afterwards until you are no longer having loose, watery stools. Zofran 1 tablet every 6 hours as necessary for nausea and or vomiting. You were to be considered on quarantine until 10 days after your last exposure to your sick contact. You must also be symptom-free for the last 24 hours of your quarantine. All discharge instructions reviewed with patient and/or family. Voiced understanding. Scripts Ondansetron (Ondansetron Odt) 4 Mg Tab.rapdis 4 MG PO Q6H PRN for NAUSEA/VOMITING, #8 TAB 0 Refills Prov: MARYBETH CHAVEZ 03/22/21 Work/School Note: Work Release Form Date Seen in the Emergency Department: Mar 22, 2021 Return to Work: Mar 29, 2021 Restrictions: Return-No Fever (24hrs) Other Restrictions Listed Below: Off quarantine when symptom-free for 24 hours after 03/29/2021. MARYBETH CHAVEZ Mar 22, 2021 14:27
[2021-03-22 14:54] LABS: BILIRUBIN,URINE NEGATIVE (NEGATIVE); CLARITY,URINE CLEAR; COLOR,URINE YELLOW; GLUCOSE, URINE (UA) NEGATIVE (NEGATIVE); KETONES,URINE NEGATIVE (NEGATIVE); LEUKOCYTE ESTERASE ,URINE NEGATIVE (NEGATIVE); NITRITE,URINE NEGATIVE (NEGATIVE); PROTEIN,URINE NEGATIVE (NEGATIVE)
[2021-03-22 15:11] LABS: BACTERIA,URINE NEGATIVE /HPF; RBC,URINE 0-2 /HPF
[2021-03-22] MEDS ORDERED: ONDA4TAB11 PO (15:11)
[2021-03-22 15:23] VITALS: BP 128/64
== END 2021-03-22 15:22 | disposition home or self-care (01) ==
LOC: EDUNIT# 13:36 → ER 13:38
DX: A08.4 Viral intestinal infection, unspecified (principal); I10 Essential (primary) hypertension; E66.9 Obesity, unspecified; Z20.822 Contact with and (suspected) exposure to COVID-19; Z68.43 Body mass index [BMI] 50.0-59.9, adult
CPT/HCPCS: 81000; 84703; 87636; 99282

== ENCOUNTER 2021-05-07 13:20 | Emergency (ER) | payer SELFPAY ==
[~2021-05-07] VITALS: Ht 162.5 cm; Wt 145.0 kg
[~2021-05-07 13:20] MED LIST changes: +ONDA4TAB11 PO
[2021-05-07] MEDS ORDERED: NS IV 1000 ML 1,000 ML IV STA (13:49)
[2021-05-07 13:51] LABS: BILIRUBIN,URINE NEGATIVE (NEGATIVE); CLARITY,URINE CLEAR; COLOR,URINE YELLOW; GLUCOSE, URINE (UA) NEGATIVE (NEGATIVE); KETONES,URINE NEGATIVE (NEGATIVE); LEUKOCYTE ESTERASE ,URINE NEGATIVE (NEGATIVE); NITRITE,URINE NEGATIVE (NEGATIVE); PH,URINE 5.5 (5-9); PROTEIN,URINE NEGATIVE (NEGATIVE)
[2021-05-07] MEDS ORDERED: ONDANSETRON 4 MG/2 ML (SDV) Z0FRAN IVP ONE (14:00)
[2021-05-07] MEDS ORDERED: LOPERAMIDE 2 MG (IMODIUM) TABLET PO ONE (14:00)
--- NOTE | 2021-05-07 14:06 | ED GI ---
General Chief Complaint: Abdominal/GI Problems Stated Complaint: ABD PAIN Nursing Triage Note: AMB TO ROOM WITH C/O ABD CRAMPING IN THE AM FOR LAST 3 YEARS HAS BEEN TO ED SEVERAL TIME WITH NEG TEST. PATIENT ADMIT TO EATING TACO LUGO AND PIZZA LAST NIGHT WITH JOSIAH. History of Present Illness Date Seen by Provider: May 07, 2021 Time Seen by Provider: 13:30 Initial Comments 26-year-old -Serbian female presents for an 18-month history of intermittent epigastric pain with occasional diarrhea and nausea and vomiting. She reports over the last 8 hours she has has persistent nausea and vomiting. S he has intermittent epigastric pain. She is taken no medication prior to arrival. She does report taking sips of water and keeping those in. Timing/Duration: Intermittent, Other (18 months) Severity/Quality: Moderate Location: Epigastric Radiation: No Radiation Associated Symptoms: No Back Pain, No Chest Pain, No Fever/Chills; Heartburn, Nausea/Vomiting Allergies and Home Medications Allergies Coded Allergies: acetaminophen (Verified Allergy, Mild, HIVES, 10/11/15) hydrocodone (Verified Adverse Reaction, Unknown, Vomiting, 02/27/19) tramadol (Unverified Adverse Reaction, Unknown, Itching, 02/27/19) Home Medications Cephalexin 500 Mg Tablet, 500 MG PO BID Prescribed by: MARYBETH CHAVEZ on 01/04/21 2325 Naproxen 500 Mg Tablet, 500 MG PO BID Prescribed by: MARYBETH CHAVEZ on 01/04/21 2325 Ondansetron 4 Mg Tab.rapdis, 4 MG PO Q6H PRN for NAUSEA/VOMITING Prescribed by: MARYBETH CHAVEZ on 03/22/21 1511 Ondansetron 4 Mg Tab.rapdis, 8 MG PO Q6H PRN for NAUSEA/VOMITING Prescribed by: RAJEEV PAUL on 05/07/21 1449 Patient Home Medication List Home Medication List Reviewed: Yes Review of Systems Review of Systems Constitutional: no symptoms reported, see HPI Gastrointestinal: See HPI, Abdomen Distended, Abdominal Pain, Diarrhea, Nausea, Poor Appetite, Poor Fluid Intake; Denies Rectal Bleeding; Vomiting Genitourinary: No Symptoms Reported, See HPI All Other Systems Reviewed Negative Unless Noted: Yes Past Qwmrevv-Jtmwfh-Feoxax Hx Patient Social History Substance use?: No Alcohol Use?: Yes Immunizations Up To Date Tetanus Booster (TDap): Unknown Seasonal Allergies Seasonal Allergies: No Past Medical History Surgeries: No Respiratory: No Cardiac: Yes Hypertension Neurological: No Reproductive Disorders: No Female Reproductive Disorders: Denies Sexually Transmitted Disease: Yes (TRICHAMONIS) Genitourinary: No UTI-Chronic Gastrointestinal: No Gastroesophageal Reflux Musculoskeletal: No Endocrine: Yes (obesity) HEENT: No Cancer: No Psychosocial: No Anxiety, Violent Behavior, Depression Integumentary: No Blood Disorders: No Adverse Reaction/Blood Tranf: No Family Medical History Reviewed Nursing Family Hx Diabetes mellitus 19 MOTHER Hypertension 19 FATHER 19 MOTHER Thyroid disease 19 MOTHER No Pertinent Family Hx Physical Exam Vital Signs Vital Signs - First Documented 05/07/21 13:28 Temp 36.1 Pulse 87 Resp 18 B/P (MAP) 144/98 (113) Pulse Ox 100 Capillary Refill : Less Than 3 Seconds Height/Weight/BMI Height: 5'4.00" Weight: 319lbs. 0oz. 144.915717fp; 54.00 BMI Method:Stated General Appearance: WD/WN, no apparent distress, obese Neck: non-tender, full range of motion, supple, normal inspection Respiratory: chest non-tender, lungs clear Cardiovascular: normal peripheral pulses, regular rate, rhythm Gastrointestinal: normal bowel sounds, soft, no pulsatile mass, distended, tenderness (epigastric) Neurologic/Psychiatric: no motor/sensory deficits, alert, normal mood/affect, oriented x 3 Skin: normal color, warm/dry Progress/Results/Core Measures Results/Orders Lab Results Laboratory Tests Test 05/07/21 13:31 05/07/21 14:00 Range/Units Urine Color YELLOW Urine Clarity CLEAR Urine pH 5.5 5-9 Urine Specific [place] >=1.030 1.016-1.022 Urine Protein NEGATIVE NEGATIVE Urine Glucose (UA) NEGATIVE NEGATIVE Urine Ketones NEGATIVE NEGATIVE Urine Nitrite NEGATIVE NEGATIVE Urine Bilirubin NEGATIVE NEGATIVE Urine Urobilinogen 0.2 < = 1.0 MG/DL Urine Leukocyte Esterase NEGATIVE NEGATIVE Urine RBC (Auto) 2+ H NEGATIVE Urine RBC NONE /HPF Urine WBC RARE /HPF Urine Squamous Epithelial Cells 10-25 H /HPF Urine Crystals NONE /LPF Urine Bacteria FEW H /HPF Urine Casts NONE /LPF Urine Mucus MODERATE H /LPF Urine Culture Indicated NO White Blood Count 7.6 4.3-11.0 10^3/uL Red Blood Count 4.52 3.80-5.11 10^6/uL Hemoglobin 11.7 11.5-16.0 g/dL Hematocrit 37 35-52 % Mean Corpuscular Volume 83 80-99 fL Mean Corpuscular Hemoglobin 26 25-34 pg Mean Corpuscular Hemoglobin Concent 31 L 32-36 g/dL Red Cell Distribution Width 16.1 H 10.0-14.5 % Platelet Count 335 130-400 10^3/uL Mean Platelet Volume 8.9 L 9.0-12.2 fL Immature Granulocyte % (Auto) 0 % Neutrophils (%) (Auto) 44 42-75 % Lymphocytes (%) (Auto) 49 H 12-44 % Monocytes (%) (Auto) 6 0-12 % Eosinophils (%) (Auto) 1 0-10 % Basophils (%) (Auto) 0 0-10 % Neutrophils # (Auto) 3.3 1.8-7.8 10^3/uL Lymphocytes # (Auto) 3.7 1.0-4.0 10^3/uL Monocytes # (Auto) 0.4 0.0-1.0 10^3/uL Eosinophils # (Auto) 0.1 0.0-0.3 10^3/uL Basophils # (Auto) 0.0 0.0-0.1 10^3/uL Immature Granulocyte # (Auto) 0.0 0.0-0.1 10^3/uL Sodium Level 140 135-145 MMOL/L Potassium Level 4.5 3.6-5.0 MMOL/L Chloride Level 109 H 98-107 MMOL/L Carbon Dioxide Level 24 21-32 MMOL/L Anion Gap 7 5-14 MMOL/L Blood Urea Nitrogen 10 7-18 MG/DL Creatinine 0.85 0.60-1.30 MG/DL Estimat Glomerular Filtration Rate 97 BUN/Creatinine Ratio 12 Glucose Level 100 70-105 MG/DL Calcium Level 9.2 8.5-10.1 MG/DL Corrected Calcium 9.4 8.5-10.1 MG/DL Total Bilirubin 0.2 0.1-1.0 MG/DL Aspartate Amino Transf (AST/SGOT) 17 5-34 U/L Alanine Aminotransferase (ALT/SGPT) 20 0-55 U/L Alkaline Phosphatase 49 40-136 U/L Total Protein 7.5 6.4-8.2 GM/DL Albumin 3.7 3.2-4.5 GM/DL My Orders Orders - RAJEEV PAUL Ua Culture If Indicated (05/07/21 13:23) Urine Bedside (05/07/21 13:23) Ondansetron Injection (Zofran Injectio (05/07/21 14:00) Ns Iv 1000 Ml (Sodium Chloride 0.9%) (05/07/21 13:49) Ct Abdomen/Pelvis Wo (05/07/21 13:49) Loperamide Tablet (Imodium Tablet) (05/07/21 14:00) Cbc With Automated Diff (05/07/21 14:29) Comprehensive Metabolic Panel (05/07/21 14:29) Medications Given in ED Current Medications Medications Dose Ordered Sig/Domenica Route Start Time Stop Time Status Last Admin Dose Admin Loperamide HCl 4 mg ONCE ONCE PO 05/07/21 14:00 05/07/21 14:01 DC 05/07/21 14:03 4 MG Ondansetron HCl 8 mg ONCE ONCE IVP 05/07/21 14:00 05/07/21 14:01 DC 05/07/21 14:02 8 MG Vital Signs/I&O 05/07/21 13:28 Temp 36.1 Pulse 87 Resp 18 B/P (MAP) 144/98 (113) Pulse Ox 100 Blood Pressure Mean: 113 Progress Progress Note : Time: 13:30 Progress Note Patient seen and evaluated, will obtain labs, normal saline 1 L per IV, Imodium 4 mg for diarrhea, and Zofran 8 mg IV for nausea and vomiting. Will obtain CT study. 1425 CT results discussed with the patient and her friend. Awaiting IV fluid infusion. 1445 patient's had no nausea or vomiting since presentation to the emergency department. She does report the pain is lessened but still present however she is having no other symptoms. Discharge instructions and return precautions reviewed. Diagnostic Imaging Diagonstic Imaging: CT Plain Films/CT/US/NM/MRI: abdomen, pelvis Comments NAME: ANKUR MYRICK MED REC#: [id number] PT STATUS: REG ER : 1995 PHYSICIAN: RAJEEV PAUL ADMIT DATE: 05/07/21/ER Draft Date of Exam:05/07/21 CT ABDOMEN/PELVIS WO PROCEDURE: CT abdomen and pelvis without contrast. TECHNIQUE: Multiple contiguous axial images were obtained through the abdomen and pelvis without the use of intravenous contrast. Auto Exposure Controls were utilized during the CT exam to meet ALARA standards for radiation dose reduction. INDICATION: Abdominal pain COMPARISON: 04/21/2016 FINDINGS: The lung bases are clear. The heart is normal in size. The liver demonstrates no focal lesions. The spleen appears normal. The pancreas is normal. The right adrenal gland appears normal. There is a fatty mass adjacent to the left adrenal gland which appears to represent a lipoma measuring up to 3.8 cm AP, and 4.3 cm transverse. This is slightly increased in size compared to 2016. The kidneys appear normal. The bowel loops are nondistended without obstruction. The appendix is normal. No free fluid or free air is seen. No acute osseous abnormality is seen. IMPRESSION: 1. No acute abnormality is seen in the abdomen or pelvis. 2. 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 Dictated on workstation # [id number] Dict: 05/07/21 1422 Trans: 05/07/21 1428 [facility] [id number] Interpreted by: FELIPE ORDAZ MD Electronically signed by: Reviewed: Reviewed by Me Departure Impression Primary Impression: Abdominal pain Qualified Codes: R10.13 - Epigastric pain Additional Impressions: Adrenal gland cyst Benign mass of left adrenal gland Disposition: 01 HOME, SELF-CARE Condition: Improved Departure-Patient Inst. Decision time for Depature: 14:40 Referrals: [facility]/JOSIANE DAHL BRETT D DO NO,LOCAL PHYSICIAN (PCP) Primary Care Physician Patient Instructions: Gastritis (DC) Add. Discharge Instructions: Adhere to a clear liquid diet for the next 4 to 6 hours then bland diet. This would include avoiding spicy, fried or greasy foods. Use Imodium, [id number] every 4-6 hours as needed for diarrhea. Increase water intake, 16 ounces every 2 hours while awake. Use Zofran for nausea or vomiting. Follow-up with your primary care provider symptoms are not improving or worsen. You have a small cystic structure next to your left adrenal gland, it is benign on CT study but could warrant seeing a general surgeon for evaluation and possible removal if needed. You can schedule an outpatient appointment to be seen by general surgeon. Please get vaccinated for COVID. Return to the emergency department for new, urgent healthcare problems. All discharge instructions reviewed with patient and/or family. Voiced understanding. Scripts Ondansetron (Ondansetron Odt) 4 Mg Tab.rapdis 8 MG PO Q6H PRN for NAUSEA/VOMITING, #12 TAB 0 Refills Prov: RAJEEV PAUL 05/07/21 Work/School Note: Work Release Form Date Seen in the Emergency Department: May 07, 2021 Return to Work: May 08, 2021 Restrictions: No Restrictions RAJEEV PAUL May 07, 2021 14:06
--- NOTE | 2021-05-07 14:29 | Diagnostic Imaging Report ---
PROCEDURE: CT abdomen and pelvis without contrast. TECHNIQUE: Multiple contiguous axial images were obtained through the abdomen and pelvis without the use of intravenous contrast. Auto Exposure Controls were utilized during the CT exam to meet ALARA standards for radiation dose reduction. INDICATION: Abdominal pain COMPARISON: 04/21/2016 FINDINGS: The lung bases are clear. The heart is normal in size. The liver demonstrates no focal lesions. The spleen appears normal. The pancreas is normal. The right adrenal gland appears normal. There is a fatty mass adjacent to the left adrenal gland which appears to represent a lipoma measuring up to 3.8 cm AP, and 4.3 cm transverse. This is slightly increased in size compared to 2016. The kidneys appear normal. The bowel loops are nondistended without obstruction. The appendix is normal. No free fluid or free air is seen. No acute osseous abnormality is seen. IMPRESSION: 1. No acute abnormality is seen in the abdomen or pelvis. 2. 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 Dictated by: Dictated on workstation # [id number]
[2021-05-07 14:38] LABS: ALBUMIN 3.7 GM/DL (3.2-4.5); POTASSIUM 4.5 MMOL/L (3.6-5.0)
[2021-05-07 14:39] LABS: BASOPHILS % (AUTO) 0 % (0-10); CALCIUM 9.2 MG/DL (8.5-10.1); EOSINOPHILS # (AUTO) 0.1 10^3/uL (0.0-0.3); EOSINOPHILS % (AUTO) 1 % (0-10); HEMATOCRIT 37 % (35-52); HEMOGLOBIN 11.7 g/dL (11.5-16.0); LYMPHOCYTES # (AUTO) 3.7 10^3/uL (1.0-4.0); LYMPHOCYTES % (AUTO) 49 % (12-44); MEAN CORPUSCULAR HEMOGLOBIN 26 pg (25-34); MEAN CORPUSCULAR HGB CONC 31 g/dL (32-36); MEAN CORPUSCULAR VOLUME 83 fL (80-99); MEAN PLATELET VOLUME 8.9 fL (9.0-12.2); MONOCYTES # (AUTO) 0.4 10^3/uL (0.0-1.0); MONOCYTES % (AUTO) 6 % (0-12); NEUTROPHILS # (AUTO) 3.3 10^3/uL (1.8-7.8); NEUTROPHILS % (AUTO) 44 % (42-75); PLATELET COUNT 335 10^3/uL (130-400); WHITE BLOOD COUNT 7.6 10^3/uL (4.3-11.0)
[2021-05-07 14:41] LABS: TOTAL PROTEIN 7.5 GM/DL (6.4-8.2)
[2021-05-07 14:41] LABS: WBC,URINE RARE /HPF
[2021-05-07 14:42] LABS: BACTERIA,URINE FEW /HPF
[2021-05-07 14:43] LABS: BILIRUBIN,TOTAL 0.2 MG/DL (0.1-1.0)
[2021-05-07 14:44] LABS: CREATININE SERUM 0.85 MG/DL (0.60-1.30)
[2021-05-07] MEDS ORDERED: ONDA4TAB11 PO (14:49)
[2021-05-07 16:04] VITALS: BP 150/100
== END 2021-05-07 16:04 | disposition home or self-care (01) ==
LOC: EDUNIT# 13:20 → ER 13:22
DX: D35.02 Benign neoplasm of left adrenal gland (principal); R10.13 Epigastric pain; E27.8 Other specified disorders of adrenal gland; E66.9 Obesity, unspecified; I10 Essential (primary) hypertension; Z68.43 Body mass index [BMI] 50.0-59.9, adult
CPT/HCPCS: 36415; 74176; 80053; 81000; 84703; 85025

== ENCOUNTER 2021-09-20 06:07 | Emergency (ER) | payer SELFPAY ==
[~2021-09-20] VITALS: Ht 162.5 cm; Wt 145.0 kg
[2021-09-20] MEDS ORDERED: PANTOPRAZOLE 40 MG (PROTONIX) VIAL IV ONE (06:45)
[2021-09-20] MEDS ORDERED: ONDANSETRON 4 MG/2 ML (SDV) Z0FRAN IVP ONE (06:45)
[2021-09-20 06:48] LABS: BASOPHILS % (AUTO) 1 % (0-10); EOSINOPHILS # (AUTO) 0.1 10^3/uL (0.0-0.3); EOSINOPHILS % (AUTO) 1 % (0-10); HEMATOCRIT 37 % (35-52); HEMOGLOBIN 11.8 g/dL (11.5-16.0); LYMPHOCYTES # (AUTO) 3.8 10^3/uL (1.0-4.0); LYMPHOCYTES % (AUTO) 46 % (12-44); MEAN CORPUSCULAR HEMOGLOBIN 25 pg (25-34); MEAN CORPUSCULAR HGB CONC 32 g/dL (32-36); MEAN CORPUSCULAR VOLUME 79 fL (80-99); MEAN PLATELET VOLUME 9.2 fL (9.0-12.2); MONOCYTES # (AUTO) 0.8 10^3/uL (0.0-1.0); MONOCYTES % (AUTO) 10 % (0-12); NEUTROPHILS # (AUTO) 3.6 10^3/uL (1.8-7.8); NEUTROPHILS % (AUTO) 43 % (42-75); PLATELET COUNT 363 10^3/uL (130-400); WHITE BLOOD COUNT 8.3 10^3/uL (4.3-11.0)
--- NOTE | 2021-09-20 06:53 | ED Abdominal Pain ---
General Chief Complaint: Abdominal/GI Problems Stated Complaint: VOMITING,ETOH Nursing Triage Note: PT TO ED BY [facility] WITH C/O VOMITING. PT REPORTS SHE DRANK A LOT OF TEQUILA LAST NIGHT ON AN EMPTY STOMACH AND WOKE UP THIS MORNING VOMITING BLOOD. PT DENIES PAIN OR DIZZINESS. VOMIT REDISH/PINK IN COLOR. PT REPORTS ONE EPISODE OF DIARRHEA THIS MORNING. Source of Information: Patient Exam Limitations: No Limitations (CARLOS ENRIQUE STONE) History of Present Illness Date Seen by Provider: Sep 20, 2021 Time Seen by Provider: 06:30 Initial Comments Reyna is a 26yoF who presents to ED via EMS with cc of "throwing up blood". She reports drinking a large amount of tequila last night around 2230 and awoke around 0545 feeling dizzy and began throwing up. She has vomited 4 times and the second and third time she noticed bright red blood in her vomit which prompted her to call the ambulance. She threw up once in the ambulance and no blood was found at that point. She also reports one incident of diarrhea this am but denies stomach pain, shortness of breath, cough, dysuria and hematuria. The patient says she drinks socially 1-2x per week but does not drink every day and has never had a similar incident occur. Currently, she is able to orally rehydrate in ED and has ambulated to the bathroom. Timing/Duration: 4-6 Hours Severity/Quality: Mild Associated Symptoms: No Back Pain, No Chest Pain, No Diaphoresis, No Fever/Chills, No Headache; Nausea/Vomiting; No Shortness of Air (CARLOS ENRIQUE STONE STUDENT) Allergies and Home Medications Allergies Coded Allergies: acetaminophen (Verified Allergy, Mild, HIVES, 10/11/15) hydrocodone (Verified Adverse Reaction, Unknown, Vomiting, 02/27/19) tramadol (Unverified Adverse Reaction, Unknown, Itching, 02/27/19) Patient Home Medication List Home Medication List Reviewed: Yes (MILLY MONTGOMERY MD) Cephalexin (Cephalexin) 500 Mg Tablet, 500 MG PO BID Prescribed by: MARYBETH CHAVEZ on 01/04/212324 Naproxen (Naprosyn) 500 Mg Tablet, 500 MG PO BID Prescribed by: MARYBETH CHAVEZ on 4/27/21 2325 Ondansetron (Ondansetron Odt) 4 Mg Tab.rapdis, 4 MG PO Q6H PRN for NAUSEA/VOMITING Prescribed by: MARYBETH CHAVEZ on 03/22/21 1511 Ondansetron (Ondansetron Odt) 4 Mg Tab.rapdis, 8 MG PO Q6H PRN for NAUSEA/VOMITING Prescribed by: RAJEEV PAUL on 05/07/21 1449 Ondansetron (Ondansetron Odt) 4 Mg Tab.rapdis, 4 MG PO Q8H Prescribed by: MILLY MONTGOMERY on 09/20/21 0721 Review of Systems Review of Systems Constitutional: chills, dizziness; No fever; weakness EENTM: No Blurred Vision, No Nose Congestion Respiratory: Denies Cough, Denies Shortness of Air, Denies Wheezing Cardiovascular: Denies Chest Pain, Denies Edema, Denies Palpitations Gastrointestinal: Denies Abdomen Distended, Denies Blood Streaked Stools; Diarrhea, Nausea, Poor Fluid Intake, Vomiting Genitourinary: Denies Burning, Denies Discharge, Denies Frequency, Denies Flank Pain, Denies Hematuria Musculoskeletal: No back pain, No neck pain Skin: no symptoms reported Psychiatric/Neurological: Denies Anxiety, Denies Headache Endocrine: Denies Excessive Sweating, Denies Flushing Hematologic/Lymphatic: No Symptoms Reported (IMELDAOSIELCARLOS ENRIQUE [employer] STUDENT) Past Dzqhaeu-Agacqj-Vikqzy Hx Patient Social History Tobacco Use?: Yes Tobacco type used: Cigarettes Smoking Status: Current Everyday Smoker Use of E-Cig and/or Vaping dev: No Substance use?: No Alcohol Use?: Yes Alcohol type: Hard Liquor Alcohol Frequency: Several times a month Pt feels they are or have been: No (IMELDAVangard Voice SystemsJuneCARLOS ENRIQUE [employer] STUDENT) Immunizations Up To Date Tetanus Booster (TDap): Unknown Influenza Vaccine Up-to-Date: No; Not Current First/Initial COVID19 Vaccinat: N/A (IMELDAFidelisOSIELCARLOS ENRIQUE [employer] STUDENT) Seasonal Allergies Seasonal Allergies: No (IMELDAOSIELCARLOS ENRIQUE [employer] STUDENT) Past Medical History Surgeries: No Respiratory: No Cardiac: Yes Hypertension Neurological: No Last Menstrual Period: Aug 30, 2021 Reproductive Disorders: No Female Reproductive Disorders: Denies Sexually Transmitted Disease: Yes (TRICHAMONIS) Genitourinary: No UTI-Chronic Gastrointestinal: No Gastroesophageal Reflux Musculoskeletal: No Endocrine: Yes (obesity) HEENT: No Cancer: No Psychosocial: No Anxiety, Violent Behavior, Depression Integumentary: No Blood Disorders: No Adverse Reaction/Blood Tranf: No ([employer]) Family Medical History Diabetes mellitus 19 MOTHER Hypertension 19 FATHER 19 MOTHER Thyroid disease 19 MOTHER No Pertinent Family Hx ([employer]) Physical Exam Vital Signs Vital Signs - First Documented 09/20/21 06:07 Temp 36.5 Pulse 88 Resp 18 B/P (MAP) 144/97 (113) Pulse Ox 99 O2 Delivery Room Air (MILLY MONTGOMERY MD) Vital Signs Capillary Refill : Less Than 3 Seconds ([employer] STUDENT) Height/Weight/BMI Height: 5'4.00" Weight: 319lbs. 0oz. 144.992973od; 54.00 BMI Method:Stated General Appearance: WD/WN, no apparent distress HEENT: PERRL/EOMI, pharyngeal erythema (right tonsillar pillar ulcerated) Neck: non-tender, full range of motion, supple, normal inspection Respiratory: chest non-tender, lungs clear, normal breath sounds, no respiratory distress, no accessory muscle use Cardiovascular: regular rate, rhythm, no edema, no murmur Gastrointestinal: normal bowel sounds, non tender, soft Extremities: normal range of motion, non-tender, no pedal edema, no calf tenderness Back: normal inspection, no CVA tenderness, no vertebral tenderness 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, no motor/sensory deficits, normal mood/affect, oriented x 3 Skin: normal color, warm/dry Lymphatic: no adenopathy (L2 [employer] ServicesANDA [employer] STUDENT) Progress/Results/Core Measures Results/Orders Lab Results Laboratory Tests Test 09/20/21 06:10 Range/Units White Blood Count 8.3 4.3-11.0 10^3/uL Red Blood Count 4.66 3.80-5.11 10^6/uL Hemoglobin 11.8 11.5-16.0 g/dL Hematocrit 37 35-52 % Mean Corpuscular Volume 79 L 80-99 fL Mean Corpuscular Hemoglobin 25 25-34 pg Mean Corpuscular Hemoglobin Concent 32 32-36 g/dL Red Cell Distribution Width 15.4 H 10.0-14.5 % Platelet Count 363 130-400 10^3/uL Mean Platelet Volume 9.2 9.0-12.2 fL Immature Granulocyte % (Auto) 0 % Neutrophils (%) (Auto) 43 42-75 % Lymphocytes (%) (Auto) 46 H 12-44 % Monocytes (%) (Auto) 10 0-12 % Eosinophils (%) (Auto) 1 0-10 % Basophils (%) (Auto) 1 0-10 % Neutrophils # (Auto) 3.6 1.8-7.8 10^3/uL Lymphocytes # (Auto) 3.8 1.0-4.0 10^3/uL Monocytes # (Auto) 0.8 0.0-1.0 10^3/uL Eosinophils # (Auto) 0.1 0.0-0.3 10^3/uL Basophils # (Auto) 0.0 0.0-0.1 10^3/uL Immature Granulocyte # (Auto) 0.0 0.0-0.1 10^3/uL (MILLY MONTGOMERY MD) My Orders Orders - MILLY MONTGOMERY MD Ed Iv/Invasive Line Start (09/20/21 06:41) Cbc With Automated Diff (09/20/21 06:41) Ondansetron Injection (Zofran Injectio (09/20/21 06:45) Pantoprazole Injection (Protonix Injecti (09/20/21 06:45) (MILLY MONTGOMERY MD) Medications Given in ED (MILLY MONTGOMERY MD) Vital Signs/I&O 09/20/21 09/20/21 06:07 09:44 Temp 36.5 Pulse 88 62 Resp 18 18 B/P (MAP) 144/97 (113) 114/64 Pulse Ox 99 98 O2 Delivery Room Air Room Air (IMLLY MONTGOMERY MD) Blood Pressure Mean: 113 Progress Progress Note : Time: 07:16 Progress Note 26-year-old female presents to the emergency department today with a chief complaint of nausea vomiting, episode of hematemesis. Onset after alcohol last night. Evaluation today includes a physical exam, CBC. Patient is treated with normal saline per EMS as well as 40 of Protonix and 4 mg of Zofran. She is ambulatory to the bathroom, steady stable gait. Exam is unremarkable. No abdominal pain. No "Pito's crunch". No blood in the oropharynx. Patient is tolerating sips of clear liquids here in the emergency department. No concern at this time for esophageal tears, rupture. No concerns for bleeding ulcer. Vital signs are stable. Recommend patient to abstain from alcohol for the next week. Wgnk-zpx-mwofuwj PPI. Medicine for for nausea sent to her pharmacy, Zofran. Return precautions given. (MILLY MONTGOMERY MD) Departure Impression Primary Impression: Gastritis, alcoholic Qualified Codes: K29.21 - Alcoholic gastritis with bleeding Disposition: HOME, SELF-CARE Condition: Stable Departure-Patient Inst. Decision time for Depature: 07:18 (MILLY MONTGOMERY MD) Referrals: [facility],LOCAL PHYSICIAN (PCP) Primary Care Physician Patient Instructions: Gastritis ED Add. Discharge Instructions: Avoid any alcohol for at least the next week. Take an ekkz-uuq-mysjugn acid truck bracer such as generic Prilosec or Pepcid daily for the 2 weeks. I have sent a prescription for nausea medicine to your local pharmacy. You can take 1 every 8 hours for nausea. Follow a clear liquid diet throughout the day today then slowly advance your diet as tolerated in the evening. Return to the emergency room for abdominal pain, persistent nausea vomiting, fever, vomiting any more blood or any other emergent concerning symptoms. Please follow-up with the primary care provider Scripts Ondansetron (Ondansetron Odt) 4 Mg Tab.rapdis 4 MG PO Q8H, #15 TAB Prov: MILLY MONTGOMERY MD 09/20/21 Verification and Attestation of Medical Student E/M Service A medical student performed and documented this service in my presence. I reviewed and verified all information documented by the medical student and made modifications to such information, when appropriate. I personally performed the physical exam and medical decision making. Milly Montgomery, Sep 20, 2021,07:16 (MILLY MONTGOMERY MD) CARLOS ENRIQUE STONE MED STUDENT Sep 20, 2021 06:53 MILLY MONTGOMERY MD Sep 20, 2021 07:19
[2021-09-20] MEDS ORDERED: ONDA4TAB11 PO (07:21)
[2021-09-20 09:44] VITALS: BP 114/64
== END 2021-09-20 07:34 | disposition home or self-care (01) ==
LOC: EDUNIT# 06:07 → ER 06:09
DX: K29.21 Alcoholic gastritis with bleeding (principal); F17.210 Nicotine dependence, cigarettes, uncomplicated; K21.9 Gastro-esophageal reflux disease without esophagitis; Z72.89 Other problems related to lifestyle
CPT/HCPCS: 36415; 85025; 96374; 96375; 99283

== ENCOUNTER 2022-12-11 17:21 | Emergency (ER) | payer SELFPAY ==
[~2022-12-11] VITALS: Ht 162.5 cm; Wt 145.0 kg
--- NOTE | 2022-12-11 17:57 | ED Cough/URI ---
General Chief Complaint: Respiratory Problems Stated Complaint: SOA \\ RIGHT EAR PAIN Source: patient Exam Limitations: no limitations History of Present Illness Date Seen by Provider: Dec 11, 2022 Time Seen by Provider: 17:54 Initial Comments Patient is a 27-year-old female who presents to the ED with right ear pain. Right ear pain for the past 2 weeks. The pain is getting worse with noted swelling and difficulty hearing. She states symptoms started with URI symptoms of cough, runny nose, sore throat. She states she tested negative for COVID influenza and strep two weeks ago. She was seen last at [facility] and well prescribed Augmentin for the cough and right ear infection. Continue having this right ear pain with the oral antibiotics. Patient was also prescribed prednisone and albuterol inhaler as she was having wheezing with worsening shortness of breath last . She is continue feeling shortness of breath with a cough but denies of any specific chest pain or abdominal pain She reports a Few episodes of diarrhea. Patient denies history of asthma, COPD, coronary artery disease, CHF. Denies any urinary symptoms. Patient states wheezing has improved but still feels short of breath with this cough and right ear pain. Taking anti-inflammatories without much improvement Allergies and Home Medications Allergies Coded Allergies: acetaminophen (Verified Allergy, Mild, HIVES, 10/11/15) hydrocodone (Verified Adverse Reaction, Unknown, Vomiting, 02/27/19) tramadol (Unverified Adverse Reaction, Unknown, Itching, 02/27/19) Patient Home Medication List Home Medication List Reviewed: Yes Amoxicillin/Potassium Clav (Amox Tr-K Clv 875-125 mg Tab) 875 Mg-125 Mg Tablet, 1 EACH PO BID Prescribed by: ZACHARIAH BRANDT on 12/11/222004 Cephalexin (Cephalexin) 500 Mg Tablet, 500 MG PO BID Prescribed by: MARYBETH CHAVEZ on 01/04/212324 Ciprofloxacin HCl/Dexameth (Ciproflox-Dexameth Otic Susp) 0.3 %-0.1 % Drop s.susp, 3 DROPS OT BID Prescribed by: ZACHARIAH BRANDT on 12/11/221956 Naproxen (Naprosyn) 500 Mg Tablet, 500 MG PO BID Prescribed by: MARYBETH CHAVEZ on 01/04/212324 Ondansetron (Ondansetron Odt) 4 Mg Tab.rapdis, 4 MG PO Q6H PRN for NAUSEA/VOMITING Prescribed by: MARYBETH CHAVEZ on 03/22/21 1511 Ondansetron (Ondansetron Odt) 4 Mg Tab.rapdis, 8 MG PO Q6H PRN for NAUSEA/VOMITING Prescribed by: RAJEEV PAUL on 05/07/21 1449 Ondansetron (Ondansetron Odt) 4 Mg Tab.rapdis, 4 MG PO Q8H Prescribed by: MILLY MONTGOMERY on 09/20/21 0721 Review of Systems Review of Systems Constitutional: No chills, No diaphoresis EENTM: No blurred vision, No double vision, No hoarseness, No mouth pain, No mouth swelling Respiratory: cough, short of breath Cardiovascular: No chest pain Gastrointestinal: No abdominal pain; diarrhea, nausea; No vomiting Genitourinary: No decreased output, No discharge Musculoskeletal: No back pain Skin: No change in color, No change in hair/nails All Other Systems Reviewed Negative Unless Noted: Yes Past Yjrsbzn-Njtnlk-Drupti Hx Patient Social History Tobacco Use?: Yes Tobacco type used: Cigarettes Smoking Status: Current Everyday Smoker Use of E-Cig and/or Vaping dev: Yes E-Cig or Vaping type used: Other Use of E-Cig and/or Vaping Ahsan: Current Everyday User Substance use?: No Alcohol Use?: No Pt feels they are or have been: No Immunizations Up To Date Tetanus Booster (TDap): Unknown Influenza Vaccine Up-to-Date: No; Not Current First/Initial COVID19 Vaccinat: N/A Second COVID19 Vaccination Daniel: N/A Third COVID19 Vaccination Date: N/A Seasonal Allergies Seasonal Allergies: No Past Medical History Surgery/Hospitalization HX: DENIES MEDICAL OR SURGICAL HX Surgeries: No Respiratory: No Cardiac: Yes Hypertension Neurological: No Reproductive Disorders: No Female Reproductive Disorders: Denies Sexually Transmitted Disease: Yes (TRICHAMONIS) Genitourinary: No UTI-Chronic Gastrointestinal: No Gastroesophageal Reflux Musculoskeletal: No Endocrine: Yes (obesity) HEENT: No Cancer: No Psychosocial: No Anxiety, Violent Behavior, Depression Integumentary: No Blood Disorders: No Adverse Reaction/Blood Tranf: No Family Medical History Diabetes mellitus 19 MOTHER Hypertension 19 FATHER 19 MOTHER Thyroid disease 19 MOTHER No Pertinent Family Hx Physical Exam Vital Signs - First Documented Capillary Refill : Height: 5'4.00" Weight: 319lbs. 0oz. 144.282362rm; 54.00 BMI Method:Stated General Appearance: WD/WN, no apparent distress Eyes: Bilateral Eye Normal Inspection, Bilateral Eye PERRL, Bilateral Eye EOMI, Bilateral Eye Abnormal EOM HEENT: other (Right ear canal with significant swelling. Possible abscess. 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, no motor/sensory deficits, alert, normal mood/affect, oriented x 3 Skin: normal color, warm/dry Progress/Results/Core Measures Suspected Sepsis SIRS Temperature: Pulse: Respiratory Rate: Laboratory Tests 12/11/22 17:53: White Blood Count 13.8H Blood Pressure / Mean: Laboratory Tests 12/11/22 17:53: Creatinine 0.81, Platelet Count 344, Total Bilirubin 0.4 Results/Orders Lab Results Laboratory Tests Test 12/11/22 17:53 Range/Units White Blood Count 13.8 H 4.3-11.0 10^3/uL Red Blood Count 4.34 3.80-5.11 10^6/uL Hemoglobin 11.1 L 11.5-16.0 g/dL Hematocrit 34 L 35-52 % Mean Corpuscular Volume 79 L 80-99 fL Mean Corpuscular Hemoglobin 26 25-34 pg Mean Corpuscular Hemoglobin Concent 33 32-36 g/dL Red Cell Distribution Width 15.9 H 10.0-14.5 % Platelet Count 344 130-400 10^3/uL Mean Platelet Volume 8.7 L 9.0-12.2 fL Immature Granulocyte % (Auto) 0 % Neutrophils (%) (Auto) 35 L 42-75 % Lymphocytes (%) (Auto) 57 H 12-44 % Monocytes (%) (Auto) 7 0-12 % Eosinophils (%) (Auto) 0 0-10 % Basophils (%) (Auto) 0 0-10 % Neutrophils # (Auto) 4.8 1.8-7.8 10^3/uL Lymphocytes # (Auto) 7.9 H 1.0-4.0 10^3/uL Monocytes # (Auto) 1.0 0.0-1.0 10^3/uL Eosinophils # (Auto) 0.1 0.0-0.3 10^3/uL Basophils # (Auto) 0.1 0.0-0.1 10^3/uL Immature Granulocyte # (Auto) 0.0 0.0-0.1 10^3/uL Sodium Level 141 135-145 MMOL/L Potassium Level 3.8 3.6-5.0 MMOL/L Chloride Level 112 H 98-107 MMOL/L Carbon Dioxide Level 19 L 21-32 MMOL/L Anion Gap 10 5-14 MMOL/L Blood Urea Nitrogen 16 7-18 MG/DL Creatinine 0.81 0.60-1.30 MG/DL Estimat Glomerular Filtration Rate 101 BUN/Creatinine Ratio 20 Glucose Level 91 70-105 MG/DL Calcium Level 9.3 8.5-10.1 MG/DL Corrected Calcium 9.5 8.5-10.1 MG/DL Total Bilirubin 0.4 0.1-1.0 MG/DL Aspartate Amino Transf (AST/SGOT) 20 5-34 U/L Alanine Aminotransferase (ALT/SGPT) 43 0-55 U/L Alkaline Phosphatase 42 40-136 U/L Total Protein 7.4 6.4-8.2 GM/DL Albumin 3.8 3.2-4.5 GM/DL Serum Test, Qualitative NEGATIVE NEGATIVE My Orders Orders - MARI DEE PA Cbc With Automated Diff (12/11/22 17:43) Comprehensive Metabolic Panel (12/11/22 17:43) Ct Maxillofacial W (12/11/22 17:43) Chest 1 View, Ap/Pa Only (12/11/22 17:43) Hcg,Qualitative Serum (12/11/22 18:11) Iohexol Injection (Omnipaque 350 Mg/Ml 1 (12/11/22 18:45) Ns (Ivpb) (Sodium Chloride 0.9% Ivpb Bag (12/11/22 18:45) Amoxicillin/Clavulanate Tablet (Augmenti (12/11/22 21:00) Medications Given in ED Current Medications Medications Dose Ordered Sig/Domenica Route Start Time Stop Time Status Last Admin Dose Admin Iohexol 100 ml ONCE ONCE IV 12/11/22 18:45 12/11/22 18:46 DC 12/11/22 18:57 100 ML Sodium Chloride 100 ml ONCE ONCE IV 12/11/22 18:45 12/11/22 18:46 DC 12/11/22 18:57 80 ML Vital Signs/I&O 12/11/22 12/11/22 12/11/22 17:25 17:25 20:55 Temp 37.2 Pulse 78 66 Resp 18 B/P (MAP) 140/83 (102) 129/89 Pulse Ox 100 100 O2 Delivery Room Air Room Air Room Air Capillary Refill : Departure Communication (PCP) Patient presents to ED with right ear pain and URI symptoms. Symptoms over the past 2 weeks. Main complaint is her right ear appears to be worsening. Reviewed previous ER visits, H&P, outpatient testing. Patient Was seen at [facility] last concerning for otitis media was discharged with Augmentin. Patient states symptoms have gotten worse difficulty hearing of the right ear. She did have tenderness around the ear canal, mastoid with significant swelling of the auditory ear canal. Stable vital signs. Lung sounds clear bilateral. Due to the continuous cough chest x-ray was ordered with CBC CMP. No known cardiac history. No appreciated leg swelling. No current chest pain or abdominal pain suggesting cardiac or abdominal etiology. Chest x-ray was negative for pneumonia. CBC shows slightly elevated white blood count 13. CBC and chemistry otherwise unremarkable. CT scan of the right side of face shows severe otitis externa with concerning for a superior upper ear canal abscess. Patient was discussed with ENT Dr. Carter who recommended ear wick, Ciprodex and continue Augmentin and to follow-up in the office. If any worsening symptoms such as fever, facial swelling or redness to return back to ED. Impression Primary Impression: Otitis externa Disposition: HOME, SELF-CARE Condition: Stable Departure-Patient Inst. Decision time for Depature: 19:55 Referrals: LZI CARTER MD [facility]/ROSALINA NO,LOCAL PHYSICIAN (PCP) Primary Care Physician Patient Instructions: Outer Ear Infection Scripts Amoxicillin/Potassium Clav (Amox Tr-K Clv 875-125 mg Tab) 875 Mg-125 Mg Tablet 1 EACH PO BID for 7 Days, #14 TAB Prov: MARI DEE 12/11/22 Ciprofloxacin HCl/Dexameth (Ciproflox-Dexameth Otic Susp) 0.3 %-0.1 % Drops.susp 3 DROPS OT BID for 7 Days, #1 EACH Prov: MARI DEE 12/11/22 MARI DEE Dec 11, 2022 17:57
[2022-12-11 18:06] LABS: BASOPHILS # (AUTO) 0.1 10^3/uL (0.0-0.1); BASOPHILS % (AUTO) 0 % (0-10); EOSINOPHILS # (AUTO) 0.1 10^3/uL (0.0-0.3); EOSINOPHILS % (AUTO) 0 % (0-10); HEMATOCRIT 34 % (35-52); HEMOGLOBIN 11.1 g/dL (11.5-16.0); LYMPHOCYTES # (AUTO) 7.9 10^3/uL (1.0-4.0); LYMPHOCYTES % (AUTO) 57 % (12-44); MEAN CORPUSCULAR HEMOGLOBIN 26 pg (25-34); MEAN CORPUSCULAR HGB CONC 33 g/dL (32-36); MEAN CORPUSCULAR VOLUME 79 fL (80-99); MEAN PLATELET VOLUME 8.7 fL (9.0-12.2); MONOCYTES % (AUTO) 7 % (0-12); NEUTROPHILS # (AUTO) 4.8 10^3/uL (1.8-7.8); NEUTROPHILS % (AUTO) 35 % (42-75); PLATELET COUNT 344 10^3/uL (130-400); WHITE BLOOD COUNT 13.8 10^3/uL (4.3-11.0)
[2022-12-11 18:23] LABS: ALBUMIN 3.8 GM/DL (3.2-4.5)
[2022-12-11 18:24] LABS: POTASSIUM 3.8 MMOL/L (3.6-5.0)
[2022-12-11 18:25] LABS: CALCIUM 9.3 MG/DL (8.5-10.1)
[2022-12-11 18:26] LABS: TOTAL PROTEIN 7.4 GM/DL (6.4-8.2)
[2022-12-11 18:28] LABS: BILIRUBIN,TOTAL 0.4 MG/DL (0.1-1.0)
[2022-12-11 18:30] LABS: CREATININE SERUM 0.81 MG/DL (0.60-1.30)
--- NOTE | 2022-12-11 18:40 | Diagnostic Imaging Report ---
EXAMINATION: Chest 1 view HISTORY: cough COMPARISON: 02/20/2020 FINDINGS: The lungs are clear without edema or pneumonia. No pleural effusion or pneumothorax. Heart size is normal. IMPRESSION: 1. Clear lungs. Dictated by: Dictated on workstation # [id number]
[2022-12-11] MEDS ORDERED: IOHEXOL 350 MG/ML 100 ML (OMNIPAQUE 350) VIAL IV ONE (18:45)
[2022-12-11] MEDS ORDERED: NS 100 ML (IVPB) BAG IV ONE (18:45)
--- NOTE | 2022-12-11 19:10 | Diagnostic Imaging Report ---
PROCEDURE: CT maxillofacial with contrast. TECHNIQUE: After intravenous administration of contrast, axial images were obtained through the face and reformatted into coronal and sagittal planes. Auto Exposure Controls were utilized during the CT exam to meet ALARA standards for radiation dose reduction. INDICATION: Right ear pain COMPARISON: 06/27/2015 FINDINGS: No intracranial midline shift or obstructive hydrocephalus within the [id number]. The orbits are unremarkable. The parapharyngeal fat is symmetric and well-maintained. The salivary glands are unremarkable. The muscles of mastication are unremarkable. Significant soft tissue thickening is noted involving the right external auditory canal. A 1.1 x 0.9 cm peripherally enhancing hypodensity is seen along the superior aspect of the right external auditory canal. There is resultant narrowing of the right external auditory canal. No associated osseous destruction at this location. This is associated with mildly prominent reactive lymph nodes within the right face and neck. The bilateral mastoid air cells and middle ear cavities appear clear. Sphenoid sinuses, maxillary sinuses, and frontal sinuses are clear. No temporomandibular joint dislocation. No acute facial fracture. IMPRESSION: Significant soft tissue swelling involving the right external auditory canal, concerning for acute otitis externa. Focal fluid collection is noted along the superior aspect of the external auditory canal concerning for a small abscess formation. No evidence of underlying osseous destruction. Prominent lymph nodes within the right neck and face, likely reactive in nature. Dictated by: Dictated on workstation # [id number]
[2022-12-11] MEDS ORDERED: CIPR7.5D6 OT (19:57)
[2022-12-11] MEDS ORDERED: AMOX1TAB12 PO (20:05)
[2022-12-11 20:55] VITALS: BP 129/89
[2022-12-11] MEDS ORDERED: AUGMENTIN 875 MG TAB (AMOXICILLIN/CLAVULANATE) PO STA (21:00)
== END 2022-12-11 21:13 | disposition home or self-care (01) ==
LOC: EDUNIT# 17:21 → ER 17:24
DX: H60.91 Unspecified otitis externa, right ear (principal); R06.2 Wheezing; R06.02 Shortness of breath; E66.9 Obesity, unspecified; F17.210 Nicotine dependence, cigarettes, uncomplicated; Z68.43 Body mass index [BMI] 50.0-59.9, adult; Z28.310 Unvaccinated for COVID-19
CPT/HCPCS: 36415; 70487; 71045; 80053; 84703; 85025